=== PATIENT | female | born 1975 | race Caucasian/White ===

== ENCOUNTER 2020-04-18 08:45 | Outpatient (REF) | payer MEDICAID, SELFPAY ==
--- NOTE | ~2020-04-18 | CT_ITS ---
EXAMINATION: CT HEAD WITHOUT CONTRAST CLINICAL INFORMATION: Tinnitus and headache. COMPARISON: CT brain 06/11/2017. TECHNIQUE: Contiguous axial imaging was performed from the skull base to vertex without intravenous administration of contrast. This CT examination was performed using dose optimization techniques as appropriate, variously including the following: *Automated exposure control *Adjustment of mA and/or kV according to patient size (this includes techniques or standardized protocols for targeted exams where dose is matched to indication/reason for exam; i.e. extremities or head) *Use of iterative reconstruction technique DLP: 765 mGy-cm FINDINGS: There is no evidence of acute intracranial hemorrhage or territorial infarction. There is a prominent left subdural thickening left frontal convexity image 144/7. Previously had a small subdural bleed in this region. No abnormal mass effect or midline shift is seen. Pink to white matter differentiation is well preserved. No extra-axial fluid collections are identified. The ventricles are normal in size. There is no abnormal attenuation within the brain parenchyma. There is soft tissue lesion in the left posterior ethmoid sinus, likely a large polyp or retention cyst. Soft tissue debris seen in the left sphenoid sinus. The rest of the paranasal sinuses and mastoid air cells are well-aerated. CT/CT head/brain wo con IMPRESSION: No acute intracranial process seen. Soft tissue density left posterior ethmoid sinus, likely retention cyst.
== END 2020-04-18 08:46 | disposition home or self-care (01) ==
LOC: HO.CT 08:45
PROVIDERS: Visit Provider Registered Nurse
DX: R51.9 Headache, unspecified (principal); H93.13 Tinnitus, bilateral; Z87.828 Personal history of other (healed) physical injury and trauma
CPT/HCPCS: 70450

== ENCOUNTER 2020-05-01 08:05 | Outpatient (REF) | payer MEDICAID, SELFPAY | END 2020-05-01 08:06 | disposition home or self-care (01) | LOC: HO.LAB 08:05 | PROVIDERS: Visit Provider Internal Medicine | DX: Z20.822 Contact with and (suspected) exposure to COVID-19 (principal) | CPT/HCPCS: 36415; C9803; U0003; U0005 ==

== ENCOUNTER 2020-05-10 09:35 | Outpatient (REF) | payer MEDICAID, SELFPAY ==
[2020-05-10 12:14] LABS: SARS COV2 PCR INHOUSE POSITIVE (Negative)
== END 2020-05-10 09:36 | disposition home or self-care (01) ==
LOC: HO.LAB 09:35
PROVIDERS: Visit Provider Internal Medicine
DX: Z20.822 Contact with and (suspected) exposure to COVID-19 (principal)
CPT/HCPCS: C9803; U0003

== ENCOUNTER 2020-06-20 08:40 | Outpatient (REF) | payer MEDICAID, SELFPAY ==
[2020-06-20 09:00] LABS: COVID-19 Test Negative (Negative)
== END 2020-06-20 08:41 | disposition home or self-care (01) ==
LOC: HO.LAB 08:40
PROVIDERS: Visit Provider Internal Medicine
DX: Z20.822 Contact with and (suspected) exposure to COVID-19 (principal)
CPT/HCPCS: 36415; 87635; C9803

== ENCOUNTER 2020-06-27 19:15 | Emergency (ER) | payer MEDICAID, SELFPAY ==
--- NOTE | ~2020-06-27 | XR_ITS ---
EXAMINATION: XR KNEE, LEFT CLINICAL INFORMATION: Left knee and right hand/wrist COMPARISON: None TECHNIQUE: Four views of the left knee. 3 views right hand/wrist FINDINGS: Left knee: There is a maintained tricompartment joint space. No bony erosive changes, fracture or or loose body seen. There is no abnormal joint effusion. Right hand/wrist: There is no visible acute fracture, dislocation or subluxation. The soft tissues are normal. XR/XR hand wrist RT IMPRESSION: Unremarkable left knee exam. Unremarkable right/wrist exam.
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
--- NOTE | ~2020-06-27 | XR_ITS ---
EXAMINATION: XR KNEE, LEFT CLINICAL INFORMATION: Left knee and right hand/wrist COMPARISON: None TECHNIQUE: Four views of the left knee. 3 views right hand/wrist FINDINGS: Left knee: There is a maintained tricompartment joint space. No bony erosive changes, fracture or or loose body seen. There is no abnormal joint effusion. Right hand/wrist: There is no visible acute fracture, dislocation or subluxation. The soft tissues are normal. XR/XR knee LT 4V IMPRESSION: Unremarkable left knee exam. Unremarkable right/wrist exam.
[2020-06-27 19:36] VITALS: BP 144/90; PULSE 75; RESP 16; TEMP 36.5; O2SAT 98; BMI 85.9
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
[2020-06-27] MEDS: NaPROXEN 500 MG TABLET PO (22:45)
== END 2020-06-27 23:00 | disposition home or self-care (01) ==
PROVIDERS: Emergency Provider Emergency Medicine; PCP Registered Nurse
DX: S00.83XA Contusion of other part of head, initial encounter (principal); S60.511A Abrasion of right hand, initial encounter; M25.562 Pain in left knee; M25.531 Pain in right wrist; G44.309 Post-traumatic headache, unspecified, not intractable; V19.40XA Pedal cycle driver injured in collision with unspecified motor vehicles in traffic accident, initial encounter; Y93.9 Activity, unspecified; Y92.410 Unspecified street and highway as the place of occurrence of the external cause; Y99.9 Unspecified external cause status; Z79.899 Other long term (current) drug therapy
CPT/HCPCS: 70450; 73110; 73130; 73564; 99284

== ENCOUNTER 2020-07-04 13:08 | Outpatient (REF) | payer MEDICAID, SELFPAY ==
--- NOTE | ~2020-07-04 | MR_ITS ---
EXAMINATION: MR BRAIN WITHOUT AND WITH CONTRAST CLINICAL INFORMATION: CSF leak with headaches. COMPARISON: CT scan of the head 06/27/2020. TECHNIQUE: Multiplanar, multisequence MRI of the brain was obtained before and after the intravenous administration of 10 mL Gadavist. FINDINGS: No diffusion abnormalities are identified to suggest an acute or subacute infarct. No mass effect or midline shift is seen. The ventricles are normal in size. There are a few foci of increased T2 and FLAIR signal in the periventricular and subcortical white matter which are nonspecific. No extra-axial fluid collections are seen. No large arachnoid granulations are demonstrated. The brainstem and cerebellum are normal. There is minimal smooth pachymeningeal enhancement. On postcontrast imaging, there is no abnormal parenchymal or leptomeningeal enhancement. No pathologic magnetic susceptibility artifact is identified on the gradient refocused acquisition. The study redemonstrates a hematoma in the right supraorbital region. The craniovertebral junction appears normal, and the cerebellar tonsils have normal position and contour. Marrow signal and midline structures are normal. The pituitary region appears normal. The major intracranial flow-voids at the level of the [place] of [place] are preserved. The dural venous sinus flow-voids appear normal. There is trace fluid in the bilateral mastoid tips. There is opacification of the posterior left ethmoid air cells. MR/MR head/brain wo/w con IMPRESSION: 1. There are no acute bleeds or infarcts. There are no masses or areas of abnormal enhancement. 2. There are no findings highly suggestive of intracranial hypotension. There is minimal smooth pachymeningeal enhancement.
[2020-07-04 13:54] LABS: Blood Urea Nitrogen 27 mg/dL (9-16); Estimated Glomerular Filt Rate 23
== END 2020-07-04 13:09 | disposition home or self-care (01) ==
LOC: HO.MRI 13:08
PROVIDERS: Visit Provider Otolaryngology
DX: Z01.812 Encounter for preprocedural laboratory examination (principal); G96.01 Cranial cerebrospinal fluid leak, spontaneous; R51.9 Headache, unspecified
CPT/HCPCS: 36415; 70553; 82565; 84520; A9585

== ENCOUNTER 2020-07-13 13:44 | Outpatient (REF) | payer MEDICAID, SELFPAY ==
[2020-07-13 10:16] LABS: Anion Gap 12 (12-20); Blood Urea Nitrogen 28 mg/dL (9-16); Calcium 9.3 mg/dL (8.4-10.2); Carbon Dioxide 24 mmol/L (22-29); Chloride 109 mmol/L (96-108); Estimated Glomerular Filt Rate 22; Potassium 3.9 mmol/L (3.3-5.1); Sodium 141 mmol/L (135-145)
[2020-07-13 10:26] LABS: Creatinine Urine 80.67 mg/dL; Protein/Creatinine Ratio, Ur 1.59 (<0.2); Total Protein Urine Random 128 mg/dL (<12)
[2020-07-13 10:40] LABS: Vitamin D 25-OH Total 32.9 ng/mL (>30)
[2020-07-16 14:12] LABS: Calcium (PTHI) 9.6 mg/dL (8.6-10.2); PTHI 73 pg/mL (14-64)
== END 2020-07-13 13:45 | disposition home or self-care (01) ==
LOC: HO.LAB 13:44
PROVIDERS: PCP Registered Nurse; Visit Provider Internal Medicine Nephrology
DX: R80.8 Other proteinuria (principal); N02.8 Recurrent and persistent hematuria with other morphologic changes; N18.32 Chronic kidney disease, stage 3b
CPT/HCPCS: 36415; 80051; 82306; 82310; 82565; 83970; 84156; 84520

== ENCOUNTER 2020-07-16 08:37 | Outpatient (REF) | payer MEDICAID, SELFPAY ==
--- NOTE | ~2020-07-16 | MM_ITS ---
EXAMINATION: MM SCREENING DIGITAL BREAST TOMOSYNTHESIS, BILATERAL CLINICAL INFORMATION: Screening. Asymptomatic. The lifetime risk of breast cancer based on the Tyrer-Cuzick Model is 11%. COMPARISON: Mammography: 03/02/2019, 07/08/2011 TECHNIQUE: Digital breast tomosynthesis is performed in both the craniocaudal and mediolateral oblique views along with computer-aided detection (CAD). Synthesized 2D images are generated from the tomosynthesis. Additional left MLO view is provided. FINDINGS: There are scattered areas of fibroglandular density (ACR BI-RADS breast composition Category b). There is asymmetry of the breast, left is slightly larger, similar to prior studies. There is oval parenchymal asymmetry again seen mid outer left breast similar to prior exams. Neither breast shows interval significant mass or architectural abnormality or developing density. No abnormal calcifications. The axilla and skin contours are unremarkable. No significant changes from prior studies. MM/MM tomosynthesis screening BI IMPRESSION: No significant changes from prior exams. ASSESSMENT: BI-RADS 2: Benign RECOMMENDATION: Routine annual mammography screening. This patient's information was entered into a reminder system with a target due date for their next mammogram.
== END 2020-07-16 08:38 | disposition home or self-care (01) ==
LOC: HO.MAMMO 08:37
PROVIDERS: PCP Registered Nurse; Visit Provider Registered Nurse
DX: Z12.31 Encounter for screening mammogram for malignant neoplasm of breast (principal)
CPT/HCPCS: 77063; 77067

== ENCOUNTER → 2020-07-24 11:14 | Outpatient (BNVA) | payer MEDICAID, SELFPAY | PROVIDERS: PCP Registered Nurse; Visit Provider Orthopaedic Surgery | DX: M65.4 Radial styloid tenosynovitis [de Quervain] (principal) | CPT/HCPCS: 20550; 99202; J1100 ==

== ENCOUNTER 2024-09-25 08:44 | Emergency (ER) | payer OTHER, SELFPAY ==
--- NOTE | 2024-09-25 | ECG_ITS ---
Test Reason : cp Blood Pressure : */* mmHG Vent. Rate : 56 BPM Atrial Rate : 56 BPM P-R Int : 144 ms QRS Dur : 100 ms QT Int : 442 ms P-R-T Axes : 38 -31 29 degrees QTcB Int : 426 ms Sinus bradycardia Left axis deviation Minimal voltage criteria for LVH, may be normal variant ( Edmund product ) Abnormal ECG No previous ECGs available Referred By: Generic ED Physician Electronically Signed By: SUAD FIERRO MD
--- NOTE | ~2024-09-25 | XR_ITS ---
CLINICAL HISTORY: nontraumatic pain 4 view right shoulder Comparison: None provided Findings: No acute fracture or dislocation is identified. No significant degenerative changes. Soft tissue structures appear within normal limits. IMPRESSION: No acute osseous abnormality is identified. This document has been electronically signed by: Kai Kumari on 09/25/2024 11:18:30
[2024-09-25 09:17] VITALS: BP 209/109; PULSE 63; RESP 18; TEMP 37; O2SAT 98; BMI 31.3
--- NOTE | 2024-09-25 12:53 | ED.EXTPRO ---
HPI - Extremity Problem General Chief complaint: Extremity Injury, Upper Stated complaint: right shoulder muscle pain Time Seen by Provider: 09/25/24 12:41 Source: patient Mode of arrival: ambulatory Limitations: no limitations History of Present Illness ED Provider: Arabella Jara APRN HPI Narrative: This is a 48-year-old female with history of hypertension and migraines who presents to the ER with complaints of right neck and shoulder pain with radiation down the right arm for 1 week. Patient denies any known injury or trauma. 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 She has been taking Tylenol and using Lidoderm patches with continued pain. She reports pain is worsened with movement. There is no associated numbness, tingling or weakness of the extremity. No reports of headache, vision changes, chest pain, abdominal pain, vomiting. Related Data Previous Rx's ?Medication ?Instructions ?Recorded acetaminophen 500 mg capsule 500 mg PO Q6H PRN pain #14 caps 06/27/20 naproxen 500 mg tablet 500 mg PO BID PRN pain #20 tabs 06/27/20 cyclobenzaprine 10 mg tablet 10 mg PO Q8H PRN muscle spasm #15 09/25/24 tabs naproxen 500 mg tablet 500 mg PO BID PRN pain #20 tabs 09/25/24 prednisone 20 mg tablet 40 mg (2 x 20 mg) PO DAILY #10 tabs 09/25/24 Allergies Allergy/AdvReac Type Severity Reaction Status Date / Time diphenhydramine (From Allergy Hives Verified 09/25/24 09:18 Benadryl) Review of Systems Review of Systems: Yes all other systems are reviewed and are negative Constitutional: Constitutional: Reports no additional constitutional complaints, Denies body ache(s), Denies chills, Denies fever(s), Denies headache(s) and Denies weakness Eyes: Eyes: Reports no additional eye complaints and Denies change in vision ENT: Reports system reviewed and no additional complaints, except as documented, Denies dizziness, Denies headache(s), Denies nasal congestion, Denies nasal discharge and Reports neck pain Cardiovascular: Cardiovascular: Reports no additional cardiovascular complaints, Denies chest pain, Denies leg edema and Denies dyspnea Respiratory: Respiratory: Reports no additional respiratory complaints, Denies cough and Denies dyspnea Gastrointestinal: Gastrointestinal: Reports no additional gastrointestinal complaints, Denies abdominal pain, Denies diarrhea, Denies nausea and Denies vomiting Genitourinary: Genitourinary: Reports no additional female genitourinary complaints and Denies urinary incontinence Musculoskeletal: Musculoskeletal: Reports no additional musculoskeletal complaints, Denies back pain, Reports arthralgias, Denies joint swelling, Reports neck pain, Denies numbness and Denies tingling Integumentary/Breasts: Skin/Breast: Reports system reviewed and no additional complaints, except as docu and Denies rash Neurologic: Reports system reviewed and no additional complaints, except as documented, Denies Abnormal speech present, Denies dizziness, Denies headache(s), Denies numbness, Denies tingling and Denies weakness PMF Past Medical History Attestation statement: The following information was validated with the patient. 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 /rt handed Physical Exam Vital Signs: Vital Signs: Last Vital Signs Temp 98.6 F 09/25/24 09:17 Pulse 63 09/25/24 09:17 Resp 18 09/25/24 09:17 BP 209/109 H 09/25/24 09:17 Pulse Ox 98 09/25/24 09:17 O2 Del Method Room Air 09/25/24 09:17 BMI result Body Mass Index 31.3 Const: General: cooperative, healthy appearing, comfortable and no acute distress Orientation/consciousness: patient oriented x3 Limitations: no limitations HEENT: Head: Yes normal to inspection Ears: hearing grossly normal bilaterally General nose exam: Normal external nose present Face and sinus: Yes normal facial exam Mouth: Normal oral and palatal mucosa present Throat: Yes posterior oropharynx normal Eyes: General: appearance normal, both eyes and all related structures Pupils: Equal, round and reactive pupils present Neck: Other: There is no midline cervical tenderness, step-offs or deformities. There is pain on palpation of the right trapezius, right posterior shoulder and right rhomboid which is worsened with palpation and movement of the right upper extremity. Neck: Yes normal visual inspection and Yes full ROM Chest: Chest palpation & inspection: normal inspection of the chest Resp: Effort & Inspection: normal respiratory effort Auscultation: clear to auscultation bilaterally Cardio: Rate: regular rate Rhythm: regular rhythm Peripheral pulses: Peripheral pulses 2+ throughout GI: Inspection: Yes normal to inspection Palpation (GI): Soft to palpation and nontender Auscultation: normal bowel sounds Back/Spine/Pelvis: Thoracic/Lumbar Spine: thoracic and lumbar spine normal to inspection Skin: General skin exam: no rashes or lesions noted Neuro: General: patient oriented x3, moves all extremities, no focal motor deficits and normal sensation to monofilament Cranial nerves: Yes CN's II-XII intact bilaterally, Yes Equal, round and reactive pupils present, Yes Bilaterally intact EOM present, Yes Nystagmus not present, Yes Normal facial strength present and Yes Midline tongue present Cognition (Neuro): normal cognition Speech: No Abnormal speech present Gait exam (Neuro): Normal gait present Motor exam (neuro): 5/5 motor strength present throughout Sensory Exam: Normal double simultaneous stimulation for sensation Deep tendon reflexes (DTR's): Right triceps reflex intensity grade: 2+, Left triceps reflex intensity grade: 2+, Rt Biceps (C5, C6): 2+, Left biceps reflex intensity grade: 2+, Right brachioradialis reflex intensity grade: 2+ and Left brachioradialis reflex intensity grade: 2+ Extrem: General: Yes normal to inspection Medical Decision Making Medical Decision Making MDM Narrative: This is a 48-year-old female with history of hypertension and migraines who presents to the ER with complaints of right neck and shoulder pain with radiation down the right arm for 1 week. Patient denies any known injury or trauma. 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 She has been taking Tylenol and using Lidoderm patches with continued pain. She reports pain is worsened with movement. There is no associated numbness, tingling or weakness of the extremity. No reports of headache, vision changes, chest pain, abdominal pain, vomiting. There is no midline cervical tenderness, step-offs or deformities. There is pain on palpation of the right trapezius, right posterior shoulder and right rhomboid which is worsened with palpation and movement of the right upper extremity. Normal neuro exam with no focal neurological deficits or red flag symptoms Pain this seems more musculoskeletal on exam. There is palpable muscle spasm on exam. Sounds like cervical radiculopathy Will discharge patient home with NSAID, muscle relaxant and brief course of prednisone. Recommend continued treatment with Tylenol and Lidoderm patches and follow up outpatient with primary care doctor as needed. Patient did have x-ray of her right shoulder here which showed no bony abnormality Differential Diagnosis Differential Diagnoses: The differential diagnosis associated with the presentation includes Cervical radiculopathy Consider shoulder strain/sprain, tendonitis/bursitis, muscle spasm. Low suspicion for fracture, dislocation, carotid dissection d/t no reports of trauma with normal exam Low suspician for malignancy, cord compressure, epidural abscess with no red flag symptoms or neuro deficits. Admission/Observation Consideration of admission/observation: Escalation of care including admission/observation considered Independent Interpretation I performed an independent interpretation of an: Plain X-Ray Interpretation: I independently viewed the x-ray and agree with the radiology report Radiology Impression Discussion of test interpretation with radiology: I have reviewed the radiologist's reading. Radiologist Impression: [address] [address] XRay Report Signed Patient: Crista Chu I MR#: [id number] : 1975 Acct:[id number] Age/Sex: 48 / F ADM Date: 09/25/24 Loc: HO.ED Attending Dr: Ordering Physician: Generic ED Physician Date of Service: 09/25/24 Procedure(s): XR shoulder RT min 2V Accession Number(s): [id number] cc: Generic ED Physician; Physician,Unknown ~ CLINICAL HISTORY: nontraumatic pain 4 view right shoulder Comparison: None provided Findings: No acute fracture or dislocation is identified. No significant degenerative changes. Soft tissue structures appear within normal limits. IMPRESSION: No acute osseous abnormality is identified. This document has been electronically signed by: Kai Kumari on 09/25/2024 11:18:30 Discharge Plan Discharge Clinical Impression: Cervical radiculopathy Patient Disposition: Home, Self-Care Instructions: Cervical Radiculopathy (ED) Additional Instructions: Heat to the area. Gentle stretching. You may continue Tylenol and medicated patches Take the additional prescriptions as ordered. If symptoms continue for more than 7 days please follow-up with your primary care doctor as you may need to have additional testing done Return for weakness, vision changes, chest pain, vomiting or worsening pain. Your blood pressure was elevated on today's visit. Please continue to take her medications and recheck your blood pressure at home. Follow-up with your primary care doctor for any continued elevated high blood pressure Prescriptions: New naproxen 500 mg tablet 500 mg PO BID PRN (Reason: pain) Qty: 20 0RF cyclobenzaprine 10 mg tablet 10 mg PO Q8H PRN (Reason: muscle spasm) Qty: 15 0RF prednisone 20 mg tablet 40 mg PO DAILY Qty: 10 0RF No Action naproxen 500 mg tablet 500 mg PO BID PRN (Reason: pain) Qty: 20 0RF acetaminophen 500 mg capsule 500 mg PO Q6H PRN (Reason: pain) Qty: 14 0RF Referrals: Physician,Unknown J [Primary Care Provider, Medical] Stand Alone Forms: Work/School Release Print Language: Italian
[2024-09-25 13:22] VITALS: BP 209/109; PULSE 63; RESP 18; TEMP 37; O2SAT 98
[2024-09-25 13:31] VITALS: BP 209/109; PULSE 63; RESP 18; TEMP 37; O2SAT 98
== END 2024-09-25 13:31 | disposition home or self-care (01) ==
PROVIDERS: Emergency Provider Emergency Medicine; PCP Nurse Practitioner Family
DX: M54.12 Radiculopathy, cervical region (principal); R07.9 Chest pain, unspecified; M25.511 Pain in right shoulder; M54.2 Cervicalgia
CPT/HCPCS: 73030; 93005; 99283; 99284

== ENCOUNTER → 2024-09-25 09:20 | Outpatient (BNV) | payer MEDICAID, SELFPAY | PROVIDERS: Visit Provider Radiology Vascular & Interventional Radiology | DX: M25.511 Pain in right shoulder (principal) | CPT/HCPCS: 73030 ==

== ENCOUNTER → 2024-09-25 09:28 | Outpatient (BNV) | payer OTHER, SELFPAY | PROVIDERS: Emergency Provider Emergency Medicine; PCP Nurse Practitioner Family; Visit Provider Internal Medicine Cardiovascular Disease | DX: R00.1 Bradycardia, unspecified (principal) | CPT/HCPCS: 93010 ==

== ENCOUNTER 2024-10-27 08:39 | Outpatient (REF) | payer OTHER, SELFPAY ==
--- OUTSIDE RECORDS SUMMARY | 2024-10-26 08:00 | XMS_ITS | Encounter Summary ---
Author Organization [facility], Address [address] [place] [address] Phone Care Team Providers Care Leading Firefighter Name Role Phone Elroy Zakiya Primary Care Provider [phone] Encounter Details Date Type Department Care Team (Late st Contact Info) Description 10/26/2024 8:00 AM EDT Office Visit [facility] - [facility] Access Center [address] [place] [phone] Esvin De La Rosa MD [address] [place] [address] [place] [phone] Chronic kidney disease, stage 4 (severe) (HCC) (Primary Dx) Social History Tobacco Use Types Packs/Day Years Used Date Smoking Tobacco: Never Alcohol Use Standard Drinks/Week Comments No 0 (1 standard drink = 0.6 oz pur e alcohol) Comments Unknown Sex and Gender Information Value Date Recorded Sex Assigned at Not on file Legal Sex Female 4:30 PM EST Gender Identity Not on file Sexual Orientation Not on file documented as of this encounter Progress Notes * Esvin De La Rosa MD - 10/26/2024 8:00 AM EDT Images from the original note were not included. History and Physical 10/26/24 Chief Complaint: Renal failure. Pertinent History: This patient has chronic kidney disease which has progressed to stage 4 and has been referred for hemodialysis access evaluation. This patient has not yet started dialysis.. The cause of renal failure is IgA nephropathyu. This patient is right hand dominant. Previous CVC/PICC lines: No Pacemaker or AICD: No Myocardial infarction the last 6 months: No Stroke in the last 6 months: No History of open heart surgery: No Chest pain/angina: No Shortness of breath: No In addition to reviewing the medical, surgical, social and family histories from the [facility] ([facility]) common record, I have also reviewed the [facility] Health History Questionnaire (Includes: Personal Health History, Medications, Allergies and Social History/Habits) which was completed today and will be scanned into this patient's electronic medical record. Further, I reviewed the records in Care Everywhere. Physical Exam: There were no vitals filed for this visit. Vitals reviewed. Constitutional: She does not appear ill. No distress. HEENT: Nose: Nose normal. Mouth/Throat: Oropharynx is clear and moist. Cardiovascular: Normal rate and regular rhythm. Pulmonary/Chest: Effort normal. Psychiatric: She has a normal mood and affect. Her behavior is normal. Judgment normal. Impression: This patient has renal failure and needs an access created for hemodialysis. I reviewed the nephrology notes in the chart and the recent pertinent laboratory values. I discussed multiple surgical options (fistula, graft, catheter) for dialysis access and gave educational materials regarding dialysis access to the patient. This patient does have co-morbidities as listed in the active problem list which increase the risk of significant complications, morbidity, and mortality related to the proposed surgical procedure for dialysis access. I discussed the risks inherent to this surgical procedurewith this patient. The risks discussed included, but were not limited to: anesthesia, bleeding, injury, infection, malfunction of the dialysis access, failure of the dialysis access, need for future operations, decreased blood flow to the distal extremity with resultant pain, paralysis, numbness, loss of function and/or amputation. Patient Active Problem List Diagnosis Stage 3b chronic kidney disease (HCC) Essential hypertension Proteinuria IgA nephropathy Stage 5 chronic kidney disease (HCC) Chronic kidney disease, stage 4 (severe) ([facility]) . Preoperative vessel mapping for hemodialysis access was performed. Please see separate note. Left: Ceph 2mm forearm, 3.5 mm upper, no connection to deep system, basilic is small, high bifurc BA at mid-upper arm Right: Ceph 2.5-3mm forearm, 7mm elbow, 5mm upper, 4mm advanced manufacturing associate to the ulnar vein, high bifurc BAnear axilla. Plan: Schedule for creation of a right arm arterio-venous fistula. Will plan for right ulnar-ulnar endo- fistula, may need venous acces in the upper arm. She may decide to do PD in the future. Dario test is positive with good radial/ulnar circulation tothe hand. This patient does not need any medical clearances prior to surgery. documented in this encounter Plan of Treatment Not on file documented as of this encounter Visit Diagnoses Diagnosis Chronic kidney disease, stage 4 (severe) (HCC)- Primary documented in this encounter Care Teams Leading Firefighter Relationship Specialty Start Date End Date [facility] [address] [place] [address] PCP - General 05/31/21 documented as of this encounter
--- OUTSIDE RECORDS SUMMARY | 2024-10-26 14:45 | XMS_ITS | Encounter Summary ---
Author Organization [employer] Address [address] [place] [address] [address] [place] [address] Care Team Providers Care Training Representative Name Role Phone Kaitlin Chilel Primary Care Provider [phone] Reason for Referral * Imaging (Routine) - Authorized Specialty Diagnoses / Procedures Referred By Felipa godoy Referred To Contact Radiology Diagnoses Well adult exam Procedures BI Mammogram Screening Tomosynthesis Bilateral Kaitlin Chilel FNP [address] [place] [address] Phone: tel: fax: [address] Phone: tel: fax: Referral ID Status Reason Start Date Expiration Date V isits Requested Visits Authorized [id number] Authorized 10/26/2024 10/26/2025 1 1 * Consultation (Routine) - Pending Review Specialty Diagnoses / Procedures Referred By Felipa godoy Referred To Contact Gastroenterology Diagnoses Well adult exam Kaitlin Chilel FNP [address] [place] [address] Phone: tel: fax: Referral ID Status Reason Start Date Expiration Date Visits Requested Visits Authorized [id number] Pending Review Specialty Services Required 10/26/2024 10/26/2025 1 1 Encounter Details Date Type Department Care Team (Late st Contact Info) Description 10/26/2024 2:45 PM EDT Office Visit [facility] [address] [place] [address] Kaitlin Chilel FNP [address] [place] [address] Well adult exam (Primary Dx); Encounter for immunization; Uncontrolled hypertension; CKD stage 4 secondary to hypertension (CMS/HCC); Anemia due to stage 4 chronic kidney disease (CMS/HCC); Heart murmur Social History Tobacco Use Types Packs/Day Years Used Date Smoking Tobacco: Never Passive Smoke Exposure: Never Smokeless Tobacco: Never Alcohol Use Standard Drinks/Week Comments Never 0 (1 standard drink = 0.6 oz pur e alcohol) Depression Answer Date Recorded Patient Health Questionnaire-9 Score 0 10/26/2024 Patient Health Questionnaire-9 Score 0 10/26/2024 Last PHQ-9: Questionnaire Data Not on file 0 10/26/2024 Housing Stability Answer Date Recorded What is your housing situation today? I have lensujata linares 10/19/[address] you li ve. Do you have problems with any of the following? None of the above 10/19/2024 Food Insecurity Answer Date Recorded Within the past 12 months, y ou worried that your food would run out before you got money to buy more: Never True 10/19/2024 Within the past 12 months,th e food you bought just didn't last and you didn't have enough money to get more: Never True 11/2024 Transportation Answer Date Recorded In the past 12 months, has l ack of transportation kept you from medical appts, meetings, work or from getting things needed for daily living? No 10/19/2024 Utilities Answer Date Recorded In the past 12 months, has t he electric, gas, oil or water company threatened to shut off services in your home? No 10/19/2024 Depression Answer Date Recorded Patient Health Questionnaire-2 Score 0 10/26/2024 Internet Access Answer Date Recorded Internet Access Q1 Yes 10/19/2024 Internet Access Q2 Not on file 10/19/2024 Comments Unknown Intention Date Recorded No desire to become (finding) 0 10/26/2024 Sex and Gender Information Value Date Recorded Sex Assigned at Female 12/09/2021 10:16 AM EDT Legal Sex Female 10:16 AM EDT Gender Identity Female 12/09/2021 10:16 AM EDT Sexual Orientation Straight 12/09/2021 10 :16 AM EDT documented as of this encounter Last Filed Vital Signs Vital Sign Reading Time Taken Comments Blood Pressure 176/94 10/26/2024 2:56 PM EDT Pulse 72 10/26/2024 2:56 PM EDT Temperature 36.8 C (98.2 F) 10/26/2024 2:56 PM EDT Respiratory Rate 18 10/26/2024 2:56 PM EDT Oxygen Saturation 98% 10/26/2024 2:56 PM EDT Inhaled Oxygen Concentration - - Weight 92.6 kg (204 lb 4 oz) 10/26/2024 2:56 PM EDT Height 158.6 cm (5' 2.45 ) 10/26/2024 2:56 PM ED T Body Mass Index 36.82 10/26/2024 2:56 PM EDT documented in this encounter Functional Status * Over the past 2 weeks, how often have you been bothered by any of the following problems? Question Answer Date of Assessment Author Patient Health Questionnaire -2 Score 0 10/26/2024 3:50 PM EDT Sofi Kim MA * Little interest or pleasure in doing things Answer Date of Assessment Author Not at all 10/26/2024 3:50 PM EDT Sofi Garza MA * Feeling down, depressed, or hopeless Answer Date of Assessment Author Not at all 10/26/2024 3:50 PM EDT Sofi Garza MA * Trouble falling or staying asleep, or sleeping too much Answer Date of Assessment Author Not at all 10/26/2024 3:50 PM EDT Sofi Garza MA * Feeling tired or having little energy Answer Date of Assessment Author Not at all 10/26/2024 3:50 PM EDT Sofi Garza MA * Poor appetite or overeating Answer Date of Assessment Author Not at all 10/26/2024 3:50 PM EDT Sofi Garza MA * Feeling bad about yourself - or that you are a failure or have let yourself or your family down Answer Date of Assessment Author Not at all 10/26/2024 3:50 PM EDT Sofi Garza MA * Trouble concentrating on things, such as reading the newspaper or watching television Answer Date of Assessment Author Not at all 10/26/2024 3:50 PM EDT Sofi Garza MA * Moving or speaking so slowly that other people could have noticed? Or the opposite - being so fidgety or restless that you have been moving around a lot more than usual. Answer Date of Assessment Author Not at all 10/26/2024 3:50 PM EDT Sofi Garza MA * Thoughts that you would be better off or hurting yourself in some way Answer Date of Assessment Author Not at all 10/26/2024 3:50 PM EDT Sofi Garza MA * Patient Health Questionnaire-9 Score Answer Date of Assessment Author 0 10/26/2024 3:50 PM EDT Sofi Garza MA * Over the last 2 weeks, how often have you been bothered by any of the following problems? Question Answer Date of Assessment Author Feeling nervous, anxious, or on edge 0 10/26/2024 3:50 PM EDT Sofi Kim MA Not being able to stop or control worrying 0 10/26/2024 3:50 PM EDT Sofi Kim MA Worrying too much about different things 0 10/26/2024 3:50 PM EDT Sofi Kim MA Trouble relaxing 0 10/26/2024 3:50 PM EDT Sofi Márquez MA Being so restless that it is hard to sit still 0 10/26/2024 3:50 PM EDT Sofi Kim MA Becoming easily annoyed or irritable 0 10/26/2024 3:50 PM EDT Sofi iKm MA Feeling afraid as if somethi ng awful might happen 0 10/26/2024 3:50 PM EDT Sofi Kim MA PATRICIA-7 Total Score 0 10/26/2024 3:50 PM EDT Sofi Kim MA documented as of this encounter Progress Notes * Kaitlin Chilel, CLEARANCE REP - 10/26/2024 2:45 PM EDT Subjective: Crista Chu is a 49 y.o. female who presents to the office for a transfer patient visit. Interim history: CKD stage 4 - History of chronic kidney disease - Followed by oceanography teacher (Dr. Cedeño) - No diabetes - Hypertension identified as underlying cause - Reports normal urination - Occasional edema, varies Hypertension - Longstanding hypertension - Mother also has hypertension - Previously on labetalol 100 mg, increased to 200 mg three times daily due to persistent high blood pressure - Denies headaches, blurry vision, weakness Iron Deficiency/Anemia - Prescribed iron tablets but not taking them due to allergy and adverse effects - Informed oceanography teacher about iron intolerance - Awaiting appointment for intravenous iron therapy Current concerns: None Problem List[1] Surgical History[2] Family History[3] Social History Living situation: Home with children Safety:No fire arms in the home. 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 Reports home and environment safe Employment/Education: Employed Diet/exercise: Eats variety of food including fruits and vegetables. Routine exercise Substance use: Denies Sexual activity: None Dental: [facility] dental Vision:[place] Last menstrual period: early menopause Children: Four children Mammogram: Over two years. Will refer Colonoscopy: Referral Mental health: Denies SI, harm self or others Allergies[4] Current Medications[5] Health Maintenance Topic Date Due Colorectal Cancer Screening Never done Hepatitis B Vaccines (2 of 3 - 19+ 3-dose series) 04/13/2019 Mammogram 07/16/2022 Zoster Vaccines (1 of 2) Never done Cervical Cancer Screening 03/16/2024 COVID-19 Vaccine (5 - 2024- season) 2024 Influenza Vaccine (1) 10/10/2024 Depression Screening 10/26/2025 Tobacco Screening 10/26/2025 SDOH Screening 10/26/2025 Alcohol/Substance Use Screening 10/26/2025 Family Planning (PISQ) 10/26/2025 Disability Screening 10/26/2025 Lipid Panel 05/15/2026 DTaP/Tdap/Td Vaccines (2 - Td or Tdap) 10/26/2034 RSV Patients and Patients Aged 60 years or older (1 - 1-dose 75+ series) 2048 Pneumococcal Vaccine: 50+ Years Completed HIV Screening Completed Hepatitis C Screening Completed RSV under 20 months Aged Out HIB Vaccines Aged Out IPV Vaccines Aged Out Hepatitis A Vaccines Aged Out Meningococcal Vaccine Aged Out Rotavirus Vaccines Aged Out HPV Vaccines Aged Out Meningococcal B Vaccine Aged Out Review of Systems Constitutional: Negative for activity change, appetite change, fatigue and fever. HENT: Negative for congestion, ear discharge, ear pain, rhinorrhea and sore throat. Eyes: Negative for discharge, redness and itching. Respiratory: Negative for cough, shortness of breath and wheezing. Cardiovascular: Negative for chest pain. Gastrointestinal: Negative for abdominal pain, blood in stool, constipation, diarrhea, nausea and vomiting. Endocrine: Negative for polydipsia and polyuria. Genitourinary: Negative for decreased urine volume, difficulty urinating, dyspareunia, hematuria and menstrual problem. Musculoskeletal: Negative for arthralgias, gait problem and joint swelling. Skin: Negative for rash. Allergic/Immunologic: Negative for environmental allergies and food allergies. Neurological: Negative for dizziness, weakness and headaches. Hematological: Does not bruise/bleed easily. Psychiatric/Behavioral: Negative for behavioral problems, sleep disturbance and suicidal ideas. Vitals: 10/26/24 1456 BP: (!) 176/94 BP Location: Left arm Patient Position: Sitting BP Cuff Size: Large adult Pulse: 72 Resp: 18 Temp: 98.2 ??F (36.8 ??C) TempSrc: Oral SpO2: 98% Weight: 204 lb 4 oz (92.6 kg) Height: 5' 2.45 (1.586 m) Physical Exam Constitutional: Appearance: Normal appearance. HENT: Head: Normocephalic and atraumatic. Right Ear: Tympanic membrane, ear canal and external ear normal. Left Ear: Tympanic membrane, ear canal and external ear normal. Nose: Nose normal. No congestion. Mouth/Throat: Mouth: Mucous membranes are moist. Pharynx: Oropharynx is clear. Eyes: Extraocular Movements: Extraocular movements intact. Pupils: Pupils are equal, round, and reactive to light. Cardiovascular: Rate and Rhythm: Normal rate and regular rhythm. Pulses: Normal pulses. Heart sounds: Normal heart sounds. No murmur heard. Comments: Murmur Pulmonary: Effort: Pulmonary effort is normal. Breath sounds: Normal breath sounds. No wheezing. Chest: Chest wall: No tenderness. Abdominal: General: Abdomen is flat. Bowel sounds are normal. Palpations: Abdomen is soft. Tenderness: There is no guarding or rebound. Musculoskeletal: General: Normal range of motion. Cervical back: Normal range of motion. Right lower leg: No edema. Left lower leg: No edema. Skin: General: Skin is warm and dry. Capillary Refill: Capillary refill takes less than 2 seconds. Findings: No bruising. Neurological: General: No focal deficit present. Mental Status: She is alert and oriented to person, place, and time. Cranial Nerves: No cranial nerve deficit. Sensory: No sensory deficit. Psychiatric: Mood and Affect: Mood normal. Behavior: Behavior normal. Thought Content: Thought content normal. Judgment: Judgment normal. Visit Diagnoses Well adult exam - Primary Well nourished, alert and cooperative , good historian, and answering questions appropriately Plan Order blood work Referred to colonoscopy and mammogram Diet and exercise review Lifestyle and behavioral health assessment Patient education on vaccination and importance getting annual vaccines Due for shingles, Tdap and Pneumococcal. Tdap and pneumococcal vaccine offered and administered. Patient advised to get her shingles vaccine from the pharmacy Relevant Orders HIV-1/2 Antigen and Antibodies, Fourth Generation, with Reflexes Chlamydia/N. Gonorrhoeae, PCR, Urine TSH Referral to Gastroenterology BI Mammogram Screening Tomosynthesis Bilateral Encounter for immunization Relevant Orders TDAP VACCINE 7 yrs + (Completed) PCV-20 VACCINE 6 wks + (Completed) Uncontrolled hypertension Hx of uncontrolled HTN. Followed by oceanography teacher Pertinent negatives include no blurred vision, chest pain, headaches, malaise/fatigue, neck pain, orthopnea, palpitations, peripheral edema, PND, shortness of breath or sweats. There are no compliance problems. Positive for CKD 4 and heart murmur Take your meds as prescribed. Do not change or discontinue current prescriptions without consultinghealth care provider Aerobic exercise daily at 30 mins daily to reduce BP and increase as tolerated. Eat heart healthy diet such as DASH. Low-sodium diet less than 2g/day to reduce BP and prevent ASCVD. Seek immediate medical attention for chest pain, palpitations, SOB, syncope, or sudden changes in mental status. CKD stage 4 secondary to hypertension (CMS/HCC) Relevant Medications ergocalciferol (Vitamin D-2) 1.25 MG (49418 UT) capsule labetalol (Normodyne) 100 MG tablet calcitriol (Rocaltrol) 0.5 MCG capsule Anemia due to stage 4 chronic kidney disease (CMS/HCC) Prescribed iron tablets but not taking them due to allergy and adverse effects Informed oceanography teacher about iron intolerance. Awaiting appointment for intravenous iron therap Heart murmur This note was drafted using Ambient (AI) technology. The patient/patient's guardian has been informed and has consented to the use of this technology: Yes [facility] CUSTOMER ACQUISITION SPECIALIST Attestation CUSTOMER ACQUISITION SPECIALIST Resident Attestation: I, Myla JACKSON , have reviewed the resident's note and agree with the assessment & plan of care as documented above. [1] Patient Active Problem List Diagnosis Essential hypertension Headache Migraine Chronic kidney disease, stage 4 (severe) (CMS/HCC) [2] No past surgical history on file. [3] Family History Problem Relation Name Age of Onset Hypertension Mother Asthma Daughter [4] Allergies Allergen Reactions Ferumoxytol Unknown Other reaction(s): Unknown Other reaction(s): Unknown [5] Current Outpatient Medications Medication Sig Dispense Refill acetaZOLAMIDE (Diamox) 250 MG tablet Take 250 mg by mouth 2 times daily. calcitriol (Rocaltrol) 0.5 MCG capsule Take 0.5 mcg by mouth. take 1 capsule (0.5 mcg total) by mouth 3 times weekly on Thursday ergocalciferol (Vitamin D-2) 1.25 MG (48073 UT) capsule Take 50,000 Units by mouth 1 (one) time perweek. Jardiance 10 MG Take 10 mg by mouth with breakfast. labetalol (Normodyne) 100 MG tablet Take 200 mg by mouth 3 times daily. No current facility-administered medications for this visit. documented in this encounter Plan of Treatment Scheduled Orders Name Type Priority Associated Diagnoses Orde r Schedule HIV-1/2 Antigen and Antibodies, Fourth Generation, with Reflexes Lab Routine Well adult exam Expected: 10/26/2024 (Approximate), Expires: 10/26/2025 Chlamydia/N. Gonorrhoeae, PCR, Urine Lab Routine Well adult exam Ordered: 10/26/2024 TSH Lab Routine Well adult exam Expected: 10/26/2024 (Approximate), Expires: 10/26/2025 BI Mammogram Screening Tomosynthesis Bilateral Imaging Routine Well adult exam Expected: 10/26/2024, Expires: 12/26/2025 Scheduled Referrals Name Type Priority Associated Diagnoses Order Schedule Referral to Gastroenterology Outpatient Referral Routine Well adult exam Expected: 10/26/2024 (Approximate), Expires: 10/26/2025 documented as of this encounter Visit Diagnoses Diagnosis Well adult exam- Primary Routine general medical examination at a health care facility Encounter for immunization Uncontrolled hypertension CKD stage 4 secondary to hypertension ([facility]) Anemia due to stage 4 chronic kidney disease ([facility]) Heart murmur Undiagnosed cardiac murmurs documented in this encounter Additional Health Concerns Assessment Noted Time PHQ-9 Depression Total Score: 0 10/27/19 3:50 PM EDT documented as of this encounter Care Teams Training Representative Relationship Specialty Start Date End Date Kaitlin Chilel FNP [address] [place] [id number] PCP - General Family Medicine 10/26/24 documented as of this encounter
--- OUTSIDE RECORDS SUMMARY | 2024-10-27 09:53 | XMS_ITS | Encounter Summary ---
Author Organization [facility], Address [address] [place] [address] Phone Care Team Providers Care Floor Hand Name Role Phone [facility] Primary Care Provider [phone] Reason for Visit * Reason Comments Med Refill Encounter Details Date Type Department Care Team (Late st Contact Info) Description 06/16/2022 Refill [facility] [address] [facility] [address] [place] [address] Rush Cedeño MD [address] [place] [address] Social History Tobacco Use Types Packs/Day Years [...] on file documented as of this encounter Plan of Treatment Not on file documented as of this encounter Visit Diagnoses Not on filedocumented in this encounter Care Teams Floor Hand Relationship Specialty Start Date End Date Shreve Eucha [address] [place] [address] PCP - General 05/31/21 documented as of this encounter
--- OUTSIDE RECORDS SUMMARY | 2024-10-27 09:53 | XMS_ITS | Encounter Summary ---
Author Organization [facility], Address [address] [place] [address] Phone Care Team Providers Care Agronomy Teacher Name Role Phone [place] [facility] Primary Care Provider [phone] Reason for Visit * Reason Comments Med Refill Encounter Details Date Type Department Care Team (Late st Contact Info) Description 04/02/2021 [facility]ill [facility] [place] [address] [place] [phone] Rush Cedeño MD [address] [place] [phone] Social History Tobacco Use Types Packs/Day Years [...] on filedocumented in this encounter Care Teams Agronomy Teacher Relationship Specialty Start Date End Date Elroy Zakiya [address] [place] [address] PCP - General 05/31/21 documented as of this encounter
--- OUTSIDE RECORDS SUMMARY | 2024-10-27 09:53 | XMS_ITS | Encounter Summary ---
Author Organization [facility], Address [address] [place] [address] Phone Care Team Providers Care Erp Technical Lead Name Role Phone [facility] [place] Primary Care Provider [phone] Encounter Details Date Type Department Care Team (Late st Contact Info) Description 09/27/2024 Office Communication [facility], - [place] [address] [place] [phone] Rush Cedeño MD [address] [place] [address] [address] [place] [phone] Social History Tobacco Use Types Packs/Day Years [...] on filedocumented in this encounter Care Teams Erp Technical Lead Relationship Specialty Start Date End Date Zakiya Abbasi [address] [place] [address] PCP - General 05/31/21 documented as of this encounter
--- OUTSIDE RECORDS SUMMARY | 2024-10-27 09:53 | XMS_ITS | Clinical Summary ---
Author Organization [employer] Address [address] [place] [address] [address] [place] [address] Care Team Providers Care Collar Fuser Name Role Phone Kaitlin Chilel TELEMARKETING AGENT Primary Care Provider [phone] Allergies Active Allergy Reactions Criticality Noted Date Comments Ferumoxytol Unknown Medium 12/16/2017 Other reaction(s): Unknown Other reaction(s): Unknown Medications Jardiance 10 MG Take 10 mg by mouth with breakfast. 5 10/12/19 26 Active ergocalciferol (Vitamin D-2) 1.25 MG (40971 UT) capsule Take 50,000 Units by mouth 1 (one) time per week. 5 12/27/19 25 Active labetalol (Normodyne) 100 MG tablet Take 200 mg by mouth 3 times daily. 5 Active acetaZOLAMIDE (Diamox) 250 MG tablet Take 250 mg by mouth 2 times daily. 5 Active calcitriol (Rocaltrol) 0.5 MCG capsule Take 0.5 mcg by mouth. take 1 capsule (0.5 mcg total) by mouth 3 times weekly on Thursday 5 Active acetaminophen (Tylenol) 500 MG tablet Take 500 mg by mouth every 6 (six) hours if needed. 1 10/27/19 25 Discontinu ed(Other) chlorthalidone (Hygroton) 25 MG tablet Take 0.5 tablets by mouth Once per day. 2 10/27/19 25 Discontinu ed(Other) naproxen (Naprosyn) 500 MG tablet Take 1 tablet by mouth if needed in the morning and at bedtime for pain. 5 10/27/19 25 Discontinu ed(Other) Active Problems Problem Noted Date Diagnosed Date Headache 10/25/2024 Essential hypertension 03/18/2019 Chronic kidney disease, stage 4 (severe) 020 Overview (10/25/2024): Update for Diagnosis Load Migraine 06/30/2011 Encounters Date Type Department Care Team Description 10/26/2024 2:45 PM EDT Office Visit [address] [address] Kaitlin Chilel FNP Well adult exam (Primary Dx); Encounter for immunization; Uncontrolled hypertension; CKD stage 4 secondary to hypertension (CMS/HCC); Anemia due to stage 4 chronic kidney disease ([facility]/HCC); Heart murmur 10/26/2024 Travel 10/25/2024 Telephone [facility] [address] [place] [id number] Malorie Samaniego MA CHART PREP 10/19/2024 Travel 10/19/2024 Patient Outreach [address] [address] Kaitlin Chilel FNP Pre-visit Planning (SDOH screening negative and tobacco screening negative) from Last 3 Months Immunizations Immunization Administration Dates Next Due Pneumococcal Conjugate PCV 20 10/26/2024 Tdap 10/26/2024 Family History Medical History Relation Name Comments Asthma Daughter Hypertension Mother Relation Name Status Comments Daughter Mother Social History Tobacco Use Types Packs/Day Years Used Date Smoking Tobacco: Never Passive Smoke Exposure: Never Smokeless Tobacco: Never Tobacco Cessation:Counseling Given: Not Answered Alcohol Use Standard Drinks/Week Comments Never 0 (1 standard drink = 0.6 oz pur e alcohol) Depression Answer Date Recorded Patient Health Questionnaire-9 Score 0 10/26/2024 Patient Health Questionnaire-9 Score 0 10/26/2024 Last PHQ-9: Questionnaire Data Not on file 0 10/26/2024 Housing Stability Answer Date Recorded What is your housing situation today? I have len linares 10/19/[address] you [...] Orientation Straight 12/09/2021 10 :16 AM EDT Last Filed Vital Signs Vital Sign Reading [...] Mass Index 36.82 10/26/2024 2:56 PM EDT Plan of Treatment Health Maintenance Due Date Last Done Comments CT Colonography 1973 Colonoscopy 1973 Colorectal Cancer Screening 1973 Dental Oral Exam 1973 Dental Prophylaxis 1973 Dental X-Ray: Bitewings 1973 Dental X-Ray: Full Mouth 1973 FIT DNA/Cologuard 1973 FIT 1973 FOBT 1973 Sigmoidoscopy 1973 Pap Smear 1994 Hepatitis B Vaccines (2 of 3 - 19+ 3-dose series) 04/13/2019 03/16/2019 Mammogram 07/16/2022 07/16/2020, 03/04/2019 Zoster Vaccines (1 of 2) 10/14/2023 Cervical Cancer Screening 03/16/2024 HPV/Cotest 03/16/2024 03/16/2019 COVID-19 Vaccine ( season) 2024 10/30/2022, 02/15/2021, 06/27/2020, Additional history exists Influenza Vaccine (#1) 2024 , 12/22/2018, 03/07/2015 Alcohol/Substance Use Screening 10/26/2025 10/26/2024 Depression Screening 10/26/2025 10/26/2024, 10/27/19 25 Disability Screening 10/26/2025 10/26/2024 Family Planning (PISQ) 10/26/2025 10/26/2024 SDOH Screening 10/26/2025 10/26/2024 Tobacco Screening 10/26/2025 10/26/2024 Lipid Panel 05/15/2026 05/15/2021 DTaP/Tdap/Td Vaccines (2 - Td or Tdap) 10/26/2034 10/26/2024, 11/14/2005 RSV Patients and Patients Aged 60 years or older (1 - 1-dose 75+ series) 2048 Hepatitis C Screening Completed 01/12/2019 HIV Screening Completed 05/15/2021, 01/12/2019 Pneumococcal Vaccine: 50+ Years Completed 10/26/2024, 11/14/2005 HIB Vaccines Aged Out No longer eligi ble based on patient's age to complete this topic HPV Vaccines Aged Out No longer eligi ble based on patient's age to complete this topic Hepatitis A Vaccines Aged Out No long er eligible based on patient's age to complete this topic IPV Vaccines Aged Out No longer eligi ble based on patient's age to complete this topic Meningococcal B Vaccine Aged Out No l onger eligible based on patient's age to complete this topic Meningococcal Vaccine Aged Out No allan josee eligible based on patient's age to complete this topic RSV under 20 months Aged Out No longe r eligible based on patient's age to complete this topic Rotavirus Vaccines Aged Out No longer eligible based on patient's age to complete this topic Procedures Procedure Name Priority Date/Time Associated Diagnosis Comments HIV 1/2 ANTIGEN/ANTIBODY, FOURTH GENERATION W/RFL Routine 05/15/2021 10:02 AM EDT LIPID PANEL, STANDARD Routine 05/15/2021 10:02 AM EDT MAMMOGRAM GENERIC Routine 07/16/2020 9:0 0 AM EDT ZZZ HISTORICAL HPV MRNA E6/E7 Routine 03/16/2019 9:45 AM EST ZZZ HISTORICAL HEPATITIS C ANTIBODY RFLX Routine 01/12/2019 10:04 AM EST from Last 3 Months or Most Recently Relevant to Health Maintenance Results * HIV 1/2 ANTIGEN/ANTIBODY,FOURTH GENERATION W/RFL (05/15/2021 10:02 AM EDT) HIV-1/2 ANTIGEN AND ANTIBODIES, 4TH GENERATION W/ REFLEX NON-REACT AUREA NON-REACT AUREA [facility] Comment: HIV-1 antigen and HIV-1/HIV-2 antibodies were not detected. There is no laboratory evidence of HIV infection. PLEASE NOTE: This information has been disclosed to you from records whose confidentiality may be protected by state law. If your state requires such protection, then the state law prohibits you from making any further disclosure of the information without the specific written consent of the person to whom it pertains, or as otherwise permitted by law. A general authorization for the release of medical or other information is NOT sufficient for this purpose. For additional information please refer to http://Globa.li.Livestream.LendAmend/faq/YOP550 (This link is being provided for informational/ educational purposes only.) The performance of this assay has not been clinically validated in patients less than 2 years old. 05/15/2021 10:0 2 AM EDT [facility] LAB BLOOD ORDERABLES Final Re sult Performing Organization Address [facility] de Phone Number [facility] [address] [place] [address], * (ABNORMAL) LIPID PANEL, STANDARD (05/15/2021 10:02 AM EDT) Chol/HDLC Ratio 4.0 <5.0 (calc) [facility] Cholesterol, Total 189 <200 mg/dL [facility] HDL Cholesterol 47(L) > OR = 50 mg/dL [facility] LDL Cholesterol 118(H) mg/dL (calc) [facility] Comment: Reference range: <100 Desirable range <100 mg/dL for primary prevention; <70 mg/dL for patients with CHD or diabetic patients with > or = 2 CHD risk factors. LDL-C is now calculated using the Tevin-Dakota calculation, which is a validated novel method providing better accuracy than the Friedewald equation in the estimation of LDL-C. Tevin SS et al. GUERLINE. 2013;310(19): 6352-9572 (http://education.[employer].LendAmend/faq/KJF103) Non-HDL Cholesterol 142(H) <130 mg/dL (calc) [facility] Comment: For patients with diabetes plus 1 major ASCVD risk factor, treating to a non-HDL-C goal of <100 mg/dL (LDL-C of <70 mg/dL) is considered a therapeutic option. Triglycerides 125 <150 mg/dL [facility] 05/15/2021 10:0 2 AM EDT [facility] LAB BLOOD ORDERABLES Final Re sult Performing Organization Address [facility] Co de Phone Number [facility] [address] [place] [address], * Mammography Report 1 (07/16/2020 9:00 AM EDT) Anatomical Region Laterality Modality Breast Bilateral Mammography 07/16/2020 9:00 AM EDT Narrative 07/17/2020 8:30 AM EDT Refer to the Notes tab for result details [facility] Procedure: Mammography Report 1 Procedure Note ProviderZayda MD - 05/04/2022 Refer to the Notes tab for result details [facility] Procedure: Mammography Report 1 Historical Provider IMG BI PROCEDURES Final R esult * HPV mRNA E6/E7 (03/16/2019 9:45 AM EST) HPV mRNA E6/E7 Not Detected NOT DETECTED [facility] Comment: This test was performed using the APTIMA(R) HPV Assay ([employer] This assay detects E6/E7 viral messenger RNA (mRNA) from 14 high-risk HPV types (16,18,31,33,35,39,45,51, 52,56,58,59,66,68). For additional information please refer to: http://education.[employer]/faq/KKQ019i4 (This link is being provided for informational/ educational purposes only.) The analytical performance characteristics of this assay have been determined by [employer] [place], [place]. The modifications have not been cleared or approved by the FDA. This assay has been validated pursuant to the CLIA regulations and is used for clinical purposes. Test Performed by [facility], [email or web address] [facility], [address] [place] [address] Sekou Orlando M.D., Ph.D., Director of Laboratories , CLIA [id number] Please note: Effective 10/22/2015, HPV testing will be performed using [employer]'s APTIMA test which targets mRNA. Detecting mRNA instead of DNA, as in older methods, offers significant improvements in specificity. 03/16/2019 9:45 AM EST Historical Provider HISTORICAL/NON ORDERABLE LABS Final Result [id number] [address] [place] [address], [place] * HEPATITIS C ANTIBODY RFLX (01/12/2019 10:04 AM EST) HEPATITIS C ANTIBODY NONREACTIVE NONREACTIVE [facility] Comment: Antibodies to HCV not detected; does not exclude early acute HCV infection. 01/12/2019 10:0 4 AM EST us Marley Jalloh MD HISTORICAL/NON ORDERABLE L ABS Final Result [facility] [address] from Last 3 Months or Most Recently Relevant to Health Maintenance Insurance [facility] MEDICAID STAND ADULT Care Teams Collar Fuser Relationship Specialty Start Date End Date Kaitlin Chilel FNP [address] [place] [address] PCP - General Family Medicine 10/26/24
--- OUTSIDE RECORDS SUMMARY | 2024-10-27 09:53 | XMS_ITS | Encounter Summary ---
Author Organization [facility], Address [address] [place] [address] Phone Care Team Providers Care Retort Operator Name Role Phone Elroy [place] Primary Care Provider Encounter Details Date Type Department Care Team (Late st Contact Info) Description 10/25/2024 Documentation Only [facility], [address] [place] [phone] Ellyn Goff [address] [place] [address] Social History Tobacco Use Types Packs/Day Years [...] on filedocumented in this encounter Care Teams Retort Operator Relationship Specialty Start Date End Date ElroyZakiya [address] [place] [address] PCP - General 05/31/21 documented as of this encounter
--- OUTSIDE RECORDS SUMMARY | 2024-10-27 09:53 | XMS_ITS | Encounter Summary ---
Author Organization [facility], Address [address] [place] [address] Phone Care Team Providers Care Mba Internship Name Role Phone Elroy [place] Primary Care Provider [phone] Encounter Details Date Type Department Care Team (Late st Contact Info) Description 10/25/2024 Documentation Only [facility], [address] [place] [phone] Ellyn Goff [address] [place] [address] Social History Tobacco Use Types [...] on filedocumented in this encounter Care Teams Mba Internship Relationship Specialty Start Date End Date ElroyZakiya [address] [place] [address] PCP - General 05/31/21 documented as of this encounter
--- OUTSIDE RECORDS SUMMARY | 2024-10-27 09:53 | XMS_ITS | Encounter Summary ---
Author Organization [facility], Address [address] [place] [address] Phone Care Team Providers Care Principal Associate Name Role Phone [facility] Primary Care Provider [phone] Reason for Visit * Reason Comments Med Change Request Encounter Details Date Type Department Care Team (Late st Contact Info) Description 06/17/2022 Refill [facility] [address] [facility] [address] [place] [address] Rush Cedeño MD [address] [place] [phone] Social History Tobacco Use Types Packs/Day Years [...] on filedocumented in this encounter Care Teams Principal Associate Relationship Specialty Start Date End Date Elroy [place] [address] [place] [address] PCP - General 05/31/21 documented as of this encounter
--- OUTSIDE RECORDS SUMMARY | 2024-10-27 09:53 | XMS_ITS | Encounter Summary ---
Author Organization [facility], Address [address] [place] [address] Phone Care Team Providers Care Pediatric Dentist Name Role Phone [facility] Primary Care Provider [phone] Encounter Details Date Type Department Care Team (Late st Contact Info) Description 10/18/2024 Office Communication [facility], [address] [place] [phone] Georgiana Smiley [address] [place] [phone] Social History Tobacco Use Types Packs/Day Years [...] on file documented as of this encounter Miscellaneous Notes * Telephone Encounter - Ellyn Goff - 10/25/2024 10:34 AM EDT Notified scheduling and faxed necessary documents. Will fax order and anaphylaxis once it is determined which form of iron is the plans preferred. * Telephone Encounter - Susie Tobin RN - 10/20/2024 3:57 PM EDT REFERRAL FOR IV IRON On 10/17/2024 Tsats 14, Ferritin 44, and Hgb 10.5. Please obtain orders for IV iron. Depending on insurance coverage, medication dosage per protocol will be: FEREHEME 510 mg: []1 dose [x]2 doses OR VENOFER 300 mg: [x]2 doses VENOFER 200 mg: []5 doses Thank you * Telephone Encounter - Georgiana Smiley - 10/18/2024 2:02 PM EDT Pt seen for CKD education and labs were done 10/17/2024 Labs: Hgb=10.5, TSat= 14, Ferritin is Not resulted yet, GFR: 18 . Please address-F/U for anemia mgt, accordingly. Thanks you! documented in this encounter Plan of Treatment Not on file documented as of this encounter Visit Diagnoses Not on filedocumented in this encounter Care Teams Pediatric Dentist Relationship Specialty Start Date End Date [place] Zakiya [address] [place] [address] PCP - General 05/31/21 documented as of this encounter
--- OUTSIDE RECORDS SUMMARY | 2024-10-27 09:53 | XMS_ITS | Clinical Summary ---
Author Organization [facility], Address [address] [facility] [address] [place] [address] Phone Care Team Providers Care Car Sales Representative Name Role Phone [facility] Primary Care Provider [phone] Allergies Active Allergy Reactions Criticality Noted Date Comments Ferumoxytol Other (see comments) Medium 12/16/2017 Other reaction(s): Unknown Medications chlorthalidone 25 MG tablet TAKE 1/2 TABLET BY MOUTH EVERY DAY 30 tablet 3 11/27/19 22 Active Additional Information Patient not taking.Reported on 09/27/2024 amLODIPine-mark azepril (LOTREL 5-20) 5-20 MG per capsule Take 1 capsule by mouth 1 (one) time each day NO MORE REFILLS NEED APPOINTMENT 30 capsule 06/18/19 23 Active Additional Information Patient not taking.Reported on 09/27/2024 acetaZOLAMIDE (DIAMOX) 250 MG tablet Take 250 mg by mouth in the morning and 250 mg in the evening. 05/26/19 25 Active labetalol (NORMODYNE) 100 MG tablet Take 2 tablets (200 mg total) by mouth in the morning and 2 tablets (200 mg total) in the evening and 2 tablets (200 mg total) before bedtime. 270 tablet 5 09/28/19 25 Active calcitriol (Rocaltrol) 0.5 MCG capsule Take 1 capsule (0.5 mcg total) by mouth 3 times weekly on Thursday 36 capsule 3 09/29/19 25 Active ergocalciferol (Drisdol) 1.25 MG (85387 UT) capsule Take 1 capsule (50,000 Units total) by mouth 1 (one) time per week 12 capsule 3 09/28/19 25 025 Active Fe Tabs 325 (65 Fe) MG EC tablet Take 1 tablet (325 mg total) by mouth 1 (one) time each day with breakfast Do not crush, chew, or split. 30 tablet 3 09/28/19 25 025 Active Empagliflozin (Jardiance) 10 MG tablet Take 10 mg by mouth 1 (one) time each day with breakfast 90 tablet 3 10/12/19 25 026 Active Jardiance 10 MG tablet Take 10 mg by mouth 1 (one) time each day with breakfast 09/10/19 25 025 Discontinued Active Problems Problem Noted Date Diagnosed Date Chronic kidney disease, stage 4 (severe) 025 Stage 5 chronic kidney disease 07/12/2024 IgA nephropathy 08/01/2019 Stage 3b chronic kidney disease 03/18/2019 Overview (02/13/2020): Update for Diagnosis Load Essential hypertension 03/18/2019 Proteinuria 03/18/2019 Resolved Problems Problem Noted Date Diagnosed Date Resolved Date Blood in urine 03/18/2019 01/28/2021 Encounters Date Type Department Care Team Description 10/26/2024 8:00 AM EDT Office Visit [facility] Vascular Access [address] [place] [address] Esvin De La Rosa MD Chronic kidney disease, stage 4 (severe) ([facility]) (Primary Dx) 10/25/2024 Documentation Only [facility] [place] [address] [place] [address] Ellyn Goff 10/25/2024 Documentation Only [facility] [place] [address] [place] [phone] Ellyn Goff 10/25/2024 Telephone [facility] Vascular Access [address] [place] [address] Cuellar, Pepper 10/18/2024 Office Communication [facility] [address] [place] [address] Georgiana Smiley 10/18/2024 Documentation Only [facility] [address] [place] [address] Georgiana Smiley 10/17/2024 Documentation Only [facility] [address] [place] [address] Georgiana Smiley 10/09/2024 Refill [facility] [address] [place] [address] Rush Cedeño MD 09/29/2024 Office Communication [facility] [address] [place] [address] Nguyễn Melendez [place] 09/28/2024 Documentation Only [facility] [address] [place] [address] Georgiana Smiley 09/27/2024 4:00 PM EDT Office Visit [facility] [address] [place] [address] Rush Cedeño MD Stage 5 chronic kidney disease (HCC) (Primary Dx); IgA nephropathy; Essential hypertension 09/27/2024 Office Communication [facility] [place] [phone] Rush Cedeño MD from Last 3 Months Family History Medical History Relation Comments Diabetes Father Heart disease Father Hypertension Father Diabetes Mother Heart disease Mother Hypertension Mother Relation Status Comments Father Unknown Mother Unknown Social History Tobacco Use Types Packs/Day Years Used Date Smoking Tobacco: Never Alcohol Use Standard Drinks/Week Comments No 0 (1 standard drink = 0.6 oz pur e alcohol) Comments Unknown Sex and Gender Information Value Date Recorded Sex Assigned at Not on file Legal Sex Female 4:30 PM EST Gender Identity Not on file Sexual Orientation Not on file Last Filed Vital Signs Vital Sign Reading Time Taken Comments Blood Pressure 116/66 12/16/2017 12:01 PM EST Pulse 74 12/03/2017 12:00 PM EDT Temperature - - Respiratory Rate 16 12/03/2017 12:00 PM EDT Oxygen Saturation - - Inhaled Oxygen Concentration - - Weight 86.6 kg (191 lb) 12/03/2017 12:00 PM EDT Height 160 cm (5' 3 ) 12/16/2017 12:00 PM EST Body Mass Index 33.83 12/03/2017 12:00 PM EDT Plan of Treatment Health Maintenance Due Date Last Done Comments Breast Cancer Screening 1975 Hepatitis B Vaccine (1 of 3 - 19+ 3-dose series) 10/13 Pneumococcal Vaccine: 50+ Years (1 of 2 - PCV) 993 Colorectal Cancer Screening: Annual FOBT 2022 Colorectal Cancer Screening: Colonoscopy 2022 Colorectal Cancer Screening: Sigmoidoscopy 2022 Influenza Vaccine (#1) 2024 Procedures Procedure Name Priority Date/Time Associated Diagnosis Comments SPECIMEN STATUS REPORT Routine 10/17/2024 11:30 AM EDT FERRITIN Routine 10/17/2024 11:30 AM EDT SPECIMEN STATUS REPORT Routine 10/17/2024 11:30 AM EDT CBC Routine 10/17/2024 11:30 AM EDT Stage 5 chronic kidney disease (HCC) IgA nephropathy Essential hypertension IRON PANEL (FE, TIBC, TSAT) Routine 10/17/2024 11:30 AM EDT Stage 5 chronic kidney disease (HCC) IgA nephropathy Essential hypertension PTH, INTACT Routine 10/17/2024 11:30 AM EDT Stage 5 chronic kidney disease (HCC) IgA nephropathy Essential hypertension VITAMIN D 25 HYDROXY Routine 10/17/2024 11:30 AM EDT Stage 5 chronic kidney disease (HCC) IgA nephropathy Essential hypertension RENAL FUNCTION PANEL Routine 10/17/2024 11:30 AM EDT Stage 5 chronic kidney disease (HCC) IgA nephropathy Essential hypertension from Last 3 Months Results * SPECIMEN STATUS REPORT (10/17/2024 11:30 AM EDT) Only the most recent of2 resultswithin the time period is included. Specimen Status Comment [facility] [place] Comment: Written Authorization Written Authorization Written Authorization Received. Authorization received from Gely Walters for Link Request on 10-19-2024 Logged by Sukhi Pa 10/17/2024 11:3 0 AM EDT 10/17/2024 Comment:Blood, Venou us Rush Cedeño MD LAB BLOOD ORDERABLES Final Resul t Performing Organization Address City/[facility]/ZIP Co de Phone Number LABCO [facility] [address] [place] [address] * (ABNORMAL) Iron Panel (Fe, TIBC, TSAT) (10/17/2024 11:30 AM EDT) TIBC 332 250 - 450 ug/dL [facility] UIBC 287 131 - 425 ug/dL [facility] Iron 45 27 - 159 ug/dL [facility] Iron Saturation (TSat) 14(L) 15 - 55 % [facility] Blood Venous blood / Unknown 10/17/2024 11:30 AM EDT 10/17/2024 Comment:Blood, Venou us Rush Cedeño MD LAB BLOOD ORDERABLES Final Resul t LAB3CLogic [facility] [address] [place] [address] * (ABNORMAL) Vitamin D 25 Hydroxy (10/17/2024 11:30 AM EDT) Vitamin D, 25-OH, Total 26.8(L) 30.0 - 100.0 ng/mL [facility] Comment: Vitamin D deficiency has been defined by the [place] of Medicine and an Endocrine Society practice guideline as a level of serum 25-OH vitamin D less than 20 ng/mL (1,2). The Endocrine Society went on to further define vitamin D insufficiency as a level between 21 and 29 ng/mL (2). 1. IOM ([place] of Medicine). 2010. Dietary reference intakes for calcium and D. [place]: The National Academies Press. 2. Arturo MF, Fariba BEST, Emma PARISH, et al. Evaluation, treatment, and prevention of vitamin D deficiency: an Endocrine Society clinical practice guideline. JCEM. 2010; 96(7):1911-30. Blood Venous blood / Unknown 10/17/2024 11:30 AM EDT 10/17/2024 Comment:Blood, Venou us Rush Cedeño MD LAB BLOOD ORDERABLES Final Resul t [facility] [address] [place] [address] * (ABNORMAL) CBC (10/17/2024 11:30 AM EDT) WBC 5.5 3.4 - 10.8 x10E3/uL [facility] RBC 3.99 3.77 - 5.28 x10E6/uL [facility] Hemoglobin 10.5(L) 11.1 - 15.9 g/dL [facility] Hematocrit 33.0(L) 34.0 - 46.6 % [facility] MCV 83 79 - 97 fL [facility] MCH 26.3(L) 26.6 - 33.0 pg [facility] MCHC 31.8 31.5 - 35.7 g/dL [facility] RDW 14.4 11.7 - 15.4 % [facility] Platelets 177 150 - 450 x10E3/uL [facility] Blood Venous blood / Unknown 10/17/2024 11:30 AM EDT 10/17/2024 Comment:Blood, Venou us Rush Cedeño MD LAB BLOOD ORDERABLES Final Resul t Performing Organization Address City/[facility]/ZIP Co de Phone Number [facility] [address] [place] [address] * Ferritin (10/17/2024 11:30 AM EDT) Pathologist [facility] Ferritin 44 15 - 150 ng/mL [facility] 10/17/2024 11:3 0 AM EDT 10/17/2024 Comment:Blood, Venou us Rush Cedeño MD LAB BLOOD ORDERABLES Final Resul t Performing Organization Address City/[facility] [[email or web address]] Co de Phone Number [facility] [address] [place] [address] * (ABNORMAL) Renal Function Panel (10/17/2024 11:30 AM EDT) Glucose 85 70 - 99 mg/dL [facility] BUN 36(H) 6 - 24 mg/dL [facility] Creatinine 3.04(H) 0.57 - 1.00 mg/dL [facility] eGFR CKD-EPI CR 2020 18(L) >59 mL/min/1.7 3 [facility] BUN/Creatinine Ratio 12 9 - 23 [facility] Sodium 140 134 - 144 mmol/L [facility] Potassium 4.2 3.5 - 5.2 mmol/L [facility] Chloride 108(H) 96 - 106 mmol/L [facility] Bicarbonate (CO2) 15(L) 20 - 29 mmol/L [facility] Calcium 9.1 8.7 - 10.2 mg/dL [facility] Phosphorus 3.8 3.0 - 4.3 mg/dL [facility] Albumin 4.0 3.8 - 4.9 g/dL [facility] Blood Venous blood / Unknown 10/17/2024 11:30 AM EDT 10/17/2024 Comment:Blood, Venou us Rush Cedeño MD LAB BLOOD ORDERABLES Final Resul t [facility] [address] [place] [address] from Last 3 Months Insurance [facility] [place] [address] Care Teams Car Sales Representative Relationship Specialty Start Date End Date [facility] [address] [place] [address] PCP - General 05/31/21
--- OUTSIDE RECORDS SUMMARY | 2024-10-27 09:53 | XMS_ITS | Encounter Summary ---
Author Organization [facility], Address [address] [place] [address] Phone Care Team Providers Care Montessori Preschool Teacher Name Role Phone [facility] Primary Care Provider [phone] Reason for Visit * Reason Comments Med Refill Encounter Details Date Type Department Care Team (Late st Contact Info) Description 03/09/2022 Refill [facility] [address] [facility] [address] [place] [address] Rush Cedeño MD [address] [place] [phone] Social History Tobacco Use Types Packs/Day Years [...] on filedocumented in this encounter Care Teams Montessori Preschool Teacher Relationship Specialty Start Date End Date [facility] [address] [place] [address] PCP - General 05/31/21 documented as of this encounter
--- OUTSIDE RECORDS SUMMARY | 2024-10-27 09:53 | XMS_ITS | Encounter Summary ---
Author Organization [employer] Address [address] [facility] 7t [place] [address] Care Team Providers Care Online Producer Name Role Phone Kaitlin Chilel MANUFACTURING ASSOCIATE Primary Care Provider [phone] Encounter Details Date Type Department Care Team (Latest Contact Info) Description 10/26/2024 Travel Social History Tobacco Use Types Packs/Day Years [...] Q2 Not on file 10/19/2024 Comments Unknown Sex and Gender Information Value Date Recorded Sex Assigned at Female 12/09/2021 10:16 AM EDT Legal Sex Female 10:16 AM EDT Gender Identity Female 12/09/2021 10:16 AM EDT Sexual Orientation Straight 12/09/2021 10 :16 AM EDT documented as of this encounter Functional Status * Over the [...] irritable 0 10/26/2024 3:50 PM EDT Sofi Kim [place] Feeling afraid as if somethi ng awful might happen 0 10/26/2024 3:50 PM EDT Sofi Kim MA PATRICIA-7 Total Score 0 10/26/2024 3:50 PM EDT Sofi Kim [place] documented as of this encounter Plan of Treatment Not on file documented as of this encounter Visit Diagnoses Not on filedocumented in this encounter Additional Health Concerns Assessment Noted Time PHQ-9 Depression Total Score: 0 10/27/19 25 3:50 PM EDT documented as of this encounter Care Teams Online Producer Relationship Specialty Start Date End Date Kaitlin Chilel FNP [address] [place] [address] PCP - General Family Medicine 10/26/24 documented as of this encounter
--- OUTSIDE RECORDS SUMMARY | 2024-10-27 09:53 | XMS_ITS | Encounter Summary ---
Author Organization [email or web address] Address [address] [facility] [address] [place] [address] Care Team Providers Care Prescription Clerk Name Role Phone Unavailable Primary Care Provider Unavailabl e Reason for Visit * Reason Onset Date Comments CHART PREP 10/25/2024 Encounter Details Date Type Department Care Team (Late st Contact Info) Description 10/25/2024 Telephone [facility] [address] [place] [address] [place] CHART PREP Social History Tobacco Use Types Packs/Day Years [...] AM EDT documented as of this encounter Miscellaneous Notes * Telephone Encounter - Malorie Samaniego MA - 10/25/2024 2:55 PM EDT Chart Prep Labs: done Images: done Referrals: not applicable Vaccines due: Covid, Flu, PCV20, Tdap, Td, Zoster, and DTAP Screenings: colonoscopy, mammogram, pap smear, and LMP Overdue care gaps: SBIRT, PHQ-9, PATRICIA-7, Disability screen, and Tobacco documented in this encounter Plan of Treatment Not on file documented as of this encounter Visit Diagnoses Not on filedocumented in this encounter
--- OUTSIDE RECORDS SUMMARY | 2024-10-27 09:53 | XMS_ITS | Encounter Summary ---
Author Organization [facility], Address [address] [place] [address] Phone Care Team Providers Care Purification Supervisor Name Role Phone [facility] Primary Care Provider [phone] Encounter Details Date Type Department Care Team (Late st Contact Info) Description 10/25/2024 Telephone [facility] Center [address] [place] [address] Pepper Cuellar [address] [place] [phone] Social History Tobacco Use Types Packs/Day [...] encounter Miscellaneous Notes * Telephone Encounter - Pepper Cuellar - 10/25/2024 9:41 AM EDT OFFICE VISIT REMINDER COMMUNICATION Spoke to pt and confirmed office visit scheduled on 10/26/24. Covid screening also completed: YES NO COMMENTS Do you have or have you had COVID or coronavirus? [] [x] Have you been exposed to COVID or coronavirus? [] [x] Do you live with anyone with COVID or who has been exposed? [] [x] Have you had any COVID symptoms in the past month such as fever, chills, cough, sore throat, shortness of breath or any other cold/fu symptoms? [] [x] Have you been hospitalized in the past 2 weeks? [] [x] Do you reside in a facility? [] [x] documented in this encounter Plan of Treatment Not on file documented as of this encounter Visit Diagnoses Not on filedocumented in this encounter Care Teams Purification Supervisor Relationship Specialty Start Date End Date [facility] [address] [place] [address] PCP - General 05/31/21 documented as of this encounter
--- OUTSIDE RECORDS SUMMARY | 2024-10-27 09:53 | XMS_ITS | Encounter Summary ---
Author Organization [facility], Address [address] [place] [address] Phone Care Team Providers Care Rn Compliance Name Role Phone [facility] Primary Care Provider [phone] Encounter Details Date Type Department Care Team (Late st Contact Info) Description 07/15/2024 Documentation Only [facility], [address] [facility] [place] [phone] Rush Cedeño MD [address] [facility] [place] [phone] Social History Tobacco Use Types Packs/Day Years [...] on filedocumented in this encounter Care Teams Rn Compliance Relationship Specialty Start Date End Date Zakiya Abbasi [address] [place] [address] PCP - General 05/31/21 documented as of this encounter
[2024-10-27 12:19] LABS: Thyroid Stimulating Hormone 1.98 uIU/mL (0.32-4.0)
[2024-10-27 12:20] LABS: HIV Num 1 0.04 S/CO (0.00-0.99)
[2024-10-27 13:55] LABS: CT PCR Urine NOT DETECTED (Not Detect.); NG PCR Urine NOT DETECTED (Not Detect.)
== END 2024-10-27 08:40 | disposition home or self-care (01) ==
LOC: HO.HHCL 08:39
PROVIDERS: PCP Nurse Practitioner Family; Visit Provider Nurse Practitioner Family
DX: Z00.00 Encounter for general adult medical examination without abnormal findings (principal)
CPT/HCPCS: 84443; 87389; 87491; 87591

== ENCOUNTER 2024-11-14 15:22 | Emergency (ER) | payer OTHER, SELFPAY ==
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
--- NOTE | ~2024-11-14 | XR_ITS ---
CLINICAL HISTORY: Fall 3 view right hand Comparison: None provided Findings: Bones intact. No dislocations. No significant arthritic change. No erosions. No radiopaque foreign body. IMPRESSION: No acute fracture or dislocation. This document has been electronically signed by: Nely Cooper DO on 11/14/2024 19:20:09
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
[2024-11-14 15:31] VITALS: BP 140/98; PULSE 70; O2SAT 98
[2024-11-14 16:12] VITALS: BP 178/77; PULSE 59; RESP 16; TEMP 36.1; O2SAT 97; BMI 37.5
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
[2024-11-14 18:32] VITALS: BP 184/85; PULSE 55; RESP 20; TEMP 36.6; O2SAT 100
--- OUTSIDE RECORDS SUMMARY | 2024-11-14 18:41 | XMS_ITS | Encounter Summary ---
Author Organization [facility], Address [address] [place] [address] Phone Care Team Providers Care Communications Supervisor Name Role Phone [facility] Primary Care Provider [phone] Reason for Visit * Reason Comments Med Refill Encounter Details Date Type Department Care Team (Late st Contact Info) Description 06/16/2022 Refill [facility] [address] [facility] [address] [place] [phone] Rush Cedeño MD [address] [place] [phone] Social History Tobacco Use Types Packs/Day Years [...] on filedocumented in this encounter Care Teams Communications Supervisor Relationship Specialty Start Date End Date [place] [address] [place] [address] PCP - General 05/31/21 documented as of this encounter
--- OUTSIDE RECORDS SUMMARY | 2024-11-14 18:41 | XMS_ITS | Encounter Summary ---
Author Organization [facility], Address [address] [place] [address] Phone Care Team Providers Care Caddie Supervisor Name Role Phone [facility] Primary Care Provider [phone] Reason for Visit * Reason Comments Med Refill Encounter Details Date Type Department Care Team (Late st Contact Info) Description 04/02/2021 [facility]ill [facility] [address] [place] [phone] Rush Cedeño MD [address] [place] [phone] Social History Tobacco Use Types Packs/Day Years [...] on filedocumented in this encounter Care Teams Caddie Supervisor Relationship Specialty Start Date End Date Elroy Zakiya [address] [place] [address] PCP - General 05/31/21 documented as of this encounter
--- OUTSIDE RECORDS SUMMARY | 2024-11-14 18:41 | XMS_ITS | Encounter Summary ---
Author Organization [facility], Address [address] [place] [address] Phone Care Team Providers Care Asphalt Mixing Machine Operator Name Role Phone [facility] Primary Care Provider [phone] Encounter Details Date Type Department Care Team (Late st Contact Info) Description 11/14/2024 Telephone [facility], [address] [place] [address] Georgiana Smiley [address] [place] [address] [place] [phone] Social History Tobacco Use Types Packs/Day Years [...] encounter Miscellaneous Notes * Telephone Encounter - Georgiana Smiley - 11/14/2024 9:55 AM EDT Author F/U call regarding progress with iron transfusions and well being. documented in this encounter Plan of Treatment Not on file documented as of this encounter Visit Diagnoses Not on filedocumented in this encounter Care Teams Asphalt Mixing Machine Operator Relationship Specialty Start Date End Date Elroy Zakiya [address] [place] [address] PCP - General 05/31/21 documented as of this encounter
--- OUTSIDE RECORDS SUMMARY | 2024-11-14 18:41 | XMS_ITS | Encounter Summary ---
Author Organization [facility], Address [address] [place] [address] Phone Care Team Providers Care Field Installer Name Role Phone [facility] Primary Care Provider [phone] Encounter Details Date Type Department Care Team (Late st Contact Info) Description 10/31/2024 Documentation Only [facility], [address] [place] [place] [phone] Ellyn Goff [address] [place] [address] Social History Tobacco Use Types [...] on filedocumented in this encounter Care Teams Field Installer Relationship Specialty Start Date End Date [address] [place] [address] PCP - General 05/31/21 documented as of this encounter
--- OUTSIDE RECORDS SUMMARY | 2024-11-14 18:41 | XMS_ITS | Clinical Summary ---
Author Organization [employer] Address [address] [place] [address] [address] [place] [address] Care Team Providers Care Imaging Tech Name Role Phone Kaitlin Chilel [employer] COUNTER PERSON Primary Care Provider Allergies Active Allergy Reactions Criticality Noted Date Comments Ferumoxytol Unknown Medium 12/16/2017 Other reaction(s): Unknown Other reaction(s): Unknown Medications Jardiance 10 MG Take 10 mg by mouth with breakfast. 5 10/12/19 26 Active ergocalciferol (Vitamin D-2) 1.25 MG (11195 UT) capsule Take 50,000 Units by mouth [...] and at bedtime for pain. 5 10/27/19 Discontinu ed(Other) Active Problems Problem Noted Date Diagnosed Date Headache 10/25/2024 Essential hypertension 03/18/2019 Chronic kidney disease, stage 4 (severe) ([facility]/ C) 03/18/2019 Overview (10/25/2024): Update for Diagnosis Load Migraine 06/30/2011 Encounters Date Type Department Care Team Description 10/26/2024 2:45 PM EDT Office Visit [address] [address] Kaitlin Chilel FNP Well adult exam (Primary Dx); Encounter for immunization; Uncontrolled hypertension; CKD stage 4 secondary to hypertension (CMS/[facility]); Anemia due to stage 4 chronic kidney disease ([facility]/HCC); Heart murmur 10/26/2024 Travel 10/25/2024 Telephone [facility] [address] [place] [phone] Malorie Samaniego [place] CHART PREP 10/19/2024 Travel 10/19/2024 Patient Outreach [address] [address] Kaitlin Chilel FNP Pre-visit Planning (SDOH screening [...] series) 2048 Hepatitis C Screening Completed 01/12/2019 Pneumococcal Vaccine: 50+ Years Completed 10/26/2024, 11/14/2005 HIV Screening Completed 10/27/2024, 04/0 07/2021, 01/12/2019 HIB Vaccines Aged Out No longer eligi [...] Procedure Name Priority Date/Time Associated Diagnosis Comments TSH Routine 10/27/2024 9:04 AM EDT Well adult exam HIV 1/2 ANTIGEN/ANTIBODY, FOURTH GENERATION W/RFL Routine 10/27/2024 9:04 AM EDT Well adult exam CHLAMYDIA/TRICHOMONA S/NEISSERIA GONORRHOEAE, PCR, URINE Routine 10/27/2024 9:04 AM EDT Well adult exam LIPID PANEL, STANDARD Routine 05/15/2021 10:02 AM EDT MAMMOGRAM GENERIC Routine 07/16/2020 9:0 0 AM EDT Z HISTORICAL HPV MRNA E6/E7 Routine 03/16/2019 9:[address] [facility] HISTORICAL HEPATITIS C ANTIBODY RFLX Routine 01/12/2019 10:04 AM EST from Last 3 Months or Most Recently Relevant to Health Maintenance Results * Chlamydia/N. Gonorrhoeae, PCR, Urine (10/27/2024 9:04 AM EDT) CT PCR, Urine NOT DETECTED Not Detect. [facility] Comment:A not detected test result does not exclude the possibilityof infection because test results can be affected byimproper specimen collection, concurrent antibiotic therapy,or the number of organisms in the specimen which may bebelow the sensitivity of the test. As with many diagnostictests, results from the Xpert CT/NG assay should beinterpreted in conjunction with other laboratory andclinical data available to the clinician.The Xpert CT/NG assay should not be used for the evaluationof suspected sexual abuse or for other medico-legalindications. Additional testing is recommended in anycircumstance when false positive or false negative resultscould lead to adverse medical, social or psychologicalconsequences. NG PCR, Urine NOT DETECTED Not Detect. [facility] Comment:A not detected test result does not exclude the possibilityof infection because test results can be affected byimproper specimen collection, concurrent antibiotic therapy,or the number of organisms in the specimen which may bebelow the sensitivity of the test. As with many diagnostictests, results from the Xpert CT/NG assay should beinterpreted in conjunction with other laboratory andclinical data available to the clinician.The Xpert CT/NG assay should not be used for the evaluationof suspected sexual abuse or for other medico-legalindications. Additional testing is recommended in anycircumstance when false positive or false negative resultscould lead to adverse medical, social or psychologicalconsequences. Urine (Urine, Random) 10/27/2024 9:04 AM EDT 10/27/2024 12:03 PM EDT Kaitlin Chilel [facility] URINE ORDERABLES Final Res ult [facility] [address] [place] [phone] * HIV-1/2 Antigen and Antibodies, Fourth Generation, with Reflexes (10/27/2024 9:04 AM EDT) HIV AB/AG Nonreactive Nonreactive [facility] Comment:HIV-1 p24 Ag and/or HIV-1/HIV-2 Ab not detected.A test result that is nonreactive does not exclude thepossibility of exposure to or infection with HIV-1 and/orHIV-2. Nonreactive results in this assay for individualswith prior exposure to HIV-1 and/or HIV-2 may be due toantigen and antibody levels that are below the limit ofdetection of this assay.The Flavor[employer]il HIV Ag/Ab Combo assay result andsupplemental assay results should be interpreted inconjunction with the patient's clinical presentation,history and other laboratory results. If the results areinconsistent with clinical evidence, additional testing issuggested to confirm the result. Blood Venous blood specimen / Unknown 10/27/2024 9:04 AM EDT 10/27/2024 11:39 AM EDT [facility] LAB BLOOD ORDERABLES Final Res ult Performing Organization Address [facility] Co de Phone Number [facility] [address] [place] [phone] * TSH (10/27/2024 9:04 AM EDT) Thyroid Stimulating Hormone 1.98 0.32 - 4.0 uIU/mL [facility] Comment:TSH 3rd Generation ( [employer]) Blood Venous blood specimen / Unknown 10/27/2024 9:04 AM EDT 10/27/2024 11:39 AM EDT [facility] LAB BLOOD ORDERABLES Final Res ult Performing Organization Address [facility] Co de Phone Number [facility] [address] [place] [phone] * (ABNORMAL) LIPID PANEL, STANDARD (05/15/2021 10:02 [...] factors. LDL-C is now calculated using the Tevin-Duncan calculation, which is a validated novel method providing better accuracy than the Friedewald equation in the estimation of LDL-C. Tevin SS et al. GUERLINE. 2013;310(19): 2239-7382 (http://GridPoint.GridCure/faq/LQQ175) Non-HDL Cholesterol 142(H) <130 mg/dL (calc) [facility] Comment: For patients with diabetes plus 1 major ASCVD risk factor, treating to a non-HDL-C goal of <100 mg/dL (LDL-C of <70 mg/dL) is considered a therapeutic option. Triglycerides 125 <150 mg/dL [facility] 05/15/2021 10:0 2 AM EDT [facility] AUTOMOTIVE [employer]S COUNTER PERSON LAB BLOOD ORDERABLES Final Re sult [facility] [address] * Mammography Report 1 (07/16/2020 9:00 AM EDT) Anatomical Region Laterality Modality Breast Bilateral Mammography 07/16/2020 9:00 AM EDT Narrative 07/17/2020 8:30 AM EDT Refer to the Notes tab for result details [facility] Procedure: Mammography Report 1 Procedure Note Provider, Zayda, - 05/04/2022 Refer to the Notes tab for result details [facility] Procedure: Mammography Report 1 Historical Provider MD RDZ BI PROCEDURES Final R esult * HPV mRNA E6/E7 (03/16/2019 9:45 AM EST) HPV mRNA E6/E7 Not Detected NOT DETECTED [facility] Comment: This test was performed using the APTIMA(R) HPV Assay ([employer] This assay detects E6/E7 viral messenger RNA (mRNA) from 14 high-risk HPV types (16,18,31,33,35,39,45,51, 52,56,58,59,66,68). For additional information please refer to: http://education.Instaradio/faq/MMY332r2 (This link is being provided for informational/ educational purposes only.) The analytical performance characteristics of this assay have been determined by [facility] [place]. The modifications have not been cleared or approved by the FDA. This assay has been validated pursuant to the CLIA regulations and is used for clinical purposes. Test Performed by [facility], [employer] [place], [address] [place] [address] Sekou Orlando M.D., Ph.D., Director of Laboratories , CLIA [id number] Please note: Effective 10/22/2015, HPV testing will be performed using [employer]'s APTIMA test which targets mRNA. Detecting mRNA instead of DNA, as in older methods, offers significant improvements in specificity. 03/16/2019 9:45 AM EST Historical Provider HISTORICAL/NON ORDERABLE LABS Final Result Performing Organization Address [facility] de Phone Number [facility] [address] * HEPATITIS C ANTIBODY RFLX (01/12/2019 10:04 AM EST) HEPATITIS C ANTIBODY NONREACTIVE NONREACTIVE [facility] Comment: Antibodies to HCV not detected; does not exclude early acute HCV infection. 01/12/2019 10:0 4 AM EST Marley Jalloh MD HISTORICAL/NON ORDERABLE L ABS Final Result Performing Organization Address [facility] Phone Number [facility] [address] from Last 3 Months or Most Recently Relevant to Health Maintenance Insurance N [facility]IAL [facility] MEDICAID STAND ADULT Care Teams Imaging Tech Relationship Specialty Start Date End Date Kaitlin Chilel FNP [address] [place] [phone] PCP - General Family Medicine 10/26/24
--- OUTSIDE RECORDS SUMMARY | 2024-11-14 18:41 | XMS_ITS | Clinical Summary ---
Author Organization [facility], Address [address] [place] [address] Phone Care Team Providers Care Drill Runner Helper Name Role Phone [facility] Primary Care Provider [phone] Allergies Active Allergy Reactions Criticality Noted Date Comments Ferumoxytol Other (see comments) Medium 12/16/2017 Other reaction(s): Unknown Medications chlorthalidone 25 MG tablet TAKE 1/2 TABLET BY MOUTH EVERY DAY 30 tablet 3 2 Active Additional Information Patient not taking.Reported on 09/27/2024 amLODIPine-leo zepril (LOTREL 5-20) 5-20 MG per capsule Take 1 capsule by mouth 1 (one) time each day NO MORE REFILLS NEED APPOINTMENT 30 capsule 3 Active Additional Information Patient not taking.Reported on 09/27/2024 acetaZOLAMIDE (DIAMOX) 250 MG tablet Take 250 mg by mouth in the morning and 250 mg in the evening. 5 Active labetalol (NORMODYNE) 100 MG tablet Take 2 tablets (200 mg total) by mouth in the morning and 2 tablets (200 mg total) in the evening and 2 tablets (200 mg total) before bedtime. 270 tablet 5 5 Active calcitriol (Rocaltrol) 0.5 MCG capsule Take 1 capsule (0.5 mcg total) by mouth 3 times weekly on Thursday 36 capsule 3 5 Active ergocalciferol (Drisdol) 1.25 MG (55729 UT) capsule Take 1 capsule (50,000 Units total) by mouth 1 (one) time per week 12 capsule 3 5 12/27/19 25 Active Empagliflozin (Jardiance) 10 MG tablet Take 10 mg by mouth 1 (one) time each day with breakfast 90 tablet 3 5 10/12/19 26 Active Fe Tabs 325 (65 Fe) MG EC tablet Take 1 tablet (325 mg total) by mouth 1 (one) time each day with breakfast Do not crush, chew, or split. 30 tablet 3 5 10/28/19 25 Active Problems Problem Noted Date Diagnosed Date Chronic kidney disease, stage 4 (severe) 025 Stage 5 chronic kidney disease 07/12/2024 IgA nephropathy 08/01/2019 Stage 3b chronic kidney disease 03/18/2019 Overview (02/13/2020): Update for Diagnosis Load Essential hypertension 03/18/2019 Proteinuria 03/18/2019 Resolved Problems Problem Noted Date Diagnosed Date Resolved Date Blood in urine 03/18/2019 01/28/2021 Encounters Date Type Department Care Team Description 11/14/2024 Telephone [facility] [address] [place] [address] Georgiana Smiley 10/31/2024 Documentation Only [facility] [address] [place] [address] Ellyn Goff 10/31/2024 Documentation Only [facility] [address] [place] [phone] Ellyn Goff 10/31/2024 Orders Only [facility] [address] [place] [address] Ellyn Goff Anemia in chronic kidney disease (Primary Dx); Other iron deficiency anemia; Stage 5 chronic kidney disease (HCC) 10/28/2024 Documentation Only [facility] [address] [place] [address] [place] [phone] Jody Gray 10/26/2024 8:00 AM EDT Office Visit [facility] [address] [place] [phone] Evsin De La Rosa MD Chronic kidney disease, stage 4 (severe) (HCC) (Primary Dx) 10/25/2024 Documentation Only [facility] [address] [place] [address] Ellyn Goff 10/25/2024 Documentation Only [facility] [address] [place] [address] Ellyn Goff 10/25/2024 Telephone [facility] [address] [place] [phone] Pepper Cuellar 10/18/2024 Office Communication [facility] [address] [place] [address] Georgiana Smiley 10/18/2024 Documentation Only [facility] [address] [place] [address] Georgiana Smiley 10/17/2024 Documentation Only [facility] [address] [place] [address] Georgiana Smiley 10/09/2024 Refill [facility] [address] [place] [address] Rush Cedeño MD 09/29/2024 Office Communication [facility] [address] [place] [address] Nguyễn Melendez [place] 09/28/2024 Documentation Only [facility] [address] [place] [address] Georgiana Smiley 09/27/2024 4:00 PM EDT Office Visit [facility] [address] [place] [address] Rush Cedeño MD Stage 5 chronic kidney disease (HCC) (Primary Dx); IgA nephropathy; Essential hypertension 09/27/2024 Office Communication [facility] [address] [place] [phone] Rush Cedeño MD from Last 3 Months [...] of 3 - 19+ 3-dose series) 10/13 Colorectal Cancer Screening: Annual FOBT 2022 Colorectal Cancer Screening: Colonoscopy 2022 Colorectal Cancer Screening: Sigmoidoscopy 2022 Influenza Vaccine (#1) 2024 Pneumococcal Vaccine: 50+ Years Completed Pneumococcal Vaccine: Peds ( 0 to 5 Years) and At-Risk Patients (6 to 49 Years) Discontinued 10/26/2024 Procedures Procedure Name Priority Date/Time Associated Diagnosis [...] time period is included. Specimen Status Comment [facility] Comment: Written Authorization Written Authorization Written Authorization Received. Authorization received from Gely Walters for Link Request on 10-19-2024 Logged by Sukhi Pa 10/17/2024 11:3 0 AM EDT 10/17/2024 Comment:Blood, Venou us Rush Cedeño MD LAB BLOOD ORDERABLES Final Resul t [facility] [address] [place] [address] * (ABNORMAL) Iron Panel (Fe, TIBC, TSAT) (10/17/2024 11:30 AM EDT) TIBC 332 250 - 450 ug/dL [facility] UIBC 287 131 - 425 ug/dL [facility] Iron 45 27 - 159 ug/dL [facility] Iron Saturation (TSat) 14(L) 15 - 55 % [facility] Blood Venous blood / Unknown 10/17/2024 11:30 AM EDT 10/17/2024 Comment:Blood, Venou us Rush Cedeño MD LAB BLOOD ORDERABLES Final Resul t [facility] [address] [place] [address] * (ABNORMAL) Vitamin D 25 Hydroxy (10/17/2024 11:30 AM EDT) Vitamin D, 25-OH, Total 26.8(L) 30.0 - 100.0 ng/mL [facility] Comment: Vitamin D deficiency has been defined by the Goodwell of Medicine and an Endocrine Society practice guideline as a level of serum 25-OH vitamin D less than 20 ng/mL (1,2). The Endocrine Society went on to further define vitamin D insufficiency as a level between 21 and 29 ng/mL (2). 1. IOM (Goodwell of Medicine). 2010. Dietary reference intakes for calcium and D. [place]: The National Academies Press. 2. Arturo MF, Fariba [place], Magnus-Kirby PARISH, et al. Evaluation, treatment, and prevention of vitamin D deficiency: an Endocrine Society clinical practice guideline. JCEM. 2010; 96(7):1911-30. Blood Venous blood / Unknown 10/17/2024 11:30 AM EDT 10/17/2024 Comment:Blood, Venou us Rush Cedeño MD LAB BLOOD ORDERABLES Final Resul t [facility] [address] [place] [address] * (ABNORMAL) CBC (10/17/2024 11:30 AM EDT) WBC 5.5 3.4 - 10.8 x10E3/uL [facility] RBC 3.99 3.77 - 5.28 x10E6/uL [facility] Hemoglobin 10.5(L) 11.1 - 15.9 g/dL [facility] Hematocrit 33.0(L) 34.0 - 46.6 % [facility] MCV 83 79 - 97 fL [facility] MCH 26.3(L) 26.6 - 33.0 pg [facility] MCHC 31.8 31.5 - 35.7 g/dL [facility] RDW 14.4 11.7 - 15.4 % [facility] Platelets 177 150 - 450 x10E3/uL [facility] Blood Venous blood / Unknown 10/17/2024 11:30 AM EDT 10/17/2024 Comment:Blood, Venou Rush Cedeño MD LAB BLOOD ORDERABLES Final Resul t [facility] [address] [place] [address] * Ferritin (10/17/2024 11:30 AM EDT) Ferritin 44 15 - 150 ng/mL [facility] 10/17/2024 11:3 0 AM EDT 10/17/2024 Comment:Blood, Venou us Rush Cedeño MD LAB BLOOD ORDERABLES Final Resul t [facility] [address] [place] [address] * (ABNORMAL) Renal Function Panel (10/17/2024 11:30 AM EDT) Glucose 85 70 - 99 mg/dL [facility] BUN 36(H) 6 - 24 mg/dL [facility] Creatinine 3.04(H) 0.57 - 1.00 mg/dL [facility] eGFR CKD-EPI CR 2020 18(L) >59 mL/min/1.7 3 [facility] BUN/Creatinine Ratio 12 9 - 23 [facility] Sodium 140 134 - 144 mmol/L [facility] Potassium 4.2 3.5 - 5.2 mmol/L [facility] Chloride 108(H) 96 - 106 mmol/L [facility] Bicarbonate (CO2) 15(L) 20 - 29 mmol/L [facility] Calcium 9.1 8.7 - 10.2 mg/dL [facility] Phosphorus 3.8 3.0 - 4.3 mg/dL [facility] Albumin 4.0 3.8 - 4.9 g/dL [facility] Blood Venous blood / Unknown 10/17/2024 11:30 AM EDT 10/17/2024 Comment:Blood, Venou Rush Cedeño MD LAB BLOOD ORDERABLES Final Resul t [facility] [address] [place] [address] from Last 3 Months Insurance [facility] Medicaid Care Teams Drill Runner Helper Relationship Specialty Start Date End Date [facility] [address] [place] [address] PCP - General 05/31/21
--- OUTSIDE RECORDS SUMMARY | 2024-11-14 18:41 | XMS_ITS | Encounter Summary ---
Author Organization [facility] [place], Address [address] [place] [address] Phone Care Team Providers Care Facilities Maintenance Technician Name Role Phone [facility] Primary Care Provider [phone] Reason for Visit * Reason Comments Med Change Request Encounter Details Date Type Department Care Team (Late st Contact Info) Description 06/17/2022 Refill [facility] [place] [facility] [address] [facility] [address] [place] [address] Rush Cedeño MD [address] [place] [phone] Social History Tobacco Use Types Packs/Day Years [...] on filedocumented in this encounter Care Teams Facilities Maintenance Technician Relationship Specialty Start Date End Date [place] [address] [place] [address] PCP - General 05/31/21 documented as of this encounter
--- OUTSIDE RECORDS SUMMARY | 2024-11-14 18:41 | XMS_ITS | Encounter Summary ---
Author Organization [facility] [place], Address [address] [place] [address] Phone Care Team Providers Care Technical Lead Name Role Phone [place] Primary Care Provider [phone] Encounter Details Date Type Department Care Team (Late st Contact Info) Description 09/27/2024 Office Communication [facility] [place], - [place] [address] [place] [phone] Rush Cedeño MD [address] [place] [address] [address] [address] Social History Tobacco Use Types Packs/Day Years [...] on filedocumented in this encounter Care Teams Technical Lead Relationship Specialty Start Date End Date Zakiya [address]asi [address] [place] [address] PCP - General 05/31/21 documented as of this encounter
--- OUTSIDE RECORDS SUMMARY | 2024-11-14 18:41 | XMS_ITS | Encounter Summary ---
Author Organization [facility] [place], Address [address] [place] [address] Phone Care Team Providers Care Extrusion Bender Name Role Phone [place] Primary Care Provider [phone] Encounter Details Date Type Department Care Team (Late st Contact Info) Description 07/15/2024 Documentation Only [facility] [place], [address] [place] [address] Rush Cedeño MD [address] [place] [place] [phone] Social History Tobacco Use Types Packs/Day Years [...] on filedocumented in this encounter Care Teams Extrusion Bender Relationship Specialty Start Date End Date Zakiya Abbasi [address] [place] [address] PCP - General 05/31/21 documented as of this encounter
--- OUTSIDE RECORDS SUMMARY | 2024-11-14 18:41 | XMS_ITS | Encounter Summary ---
Author Organization [facility] [place], Address [address] [place] [address] Phone Care Team Providers Care Home Decorator Name Role Phone [place] Primary Care Provider [phone] Encounter Details Date Type Department Care Team (Late st Contact Info) Description 10/25/2024 Documentation Only [facility] [place], [address] [place] [phone] Ellyn Goff [address] [place] [address] Social History Tobacco Use Types [...] on filedocumented in this encounter Care Teams Home Decorator Relationship Specialty Start Date End Date [place] wyl[place] [address] [place] [address] PCP - General 05/31/21 documented as of this encounter
--- OUTSIDE RECORDS SUMMARY | 2024-11-14 18:41 | XMS_ITS | Encounter Summary ---
Author Organization [facility] [place], Address [address] [place] [address] Phone Care Team Providers Care Beam Saw Operator Name Role Phone [facility] Primary Care Provider [phone] Reason for Visit * Reason Comments Med Refill Encounter Details Date Type Department Care Team (Late st Contact Info) Description 03/09/2022 Refill [facility] [place] - [address] [place] [facility] [address] [place] [address] Rush Cedeño MD [address] [place] [phone] Social History Tobacco Use Types Packs/Day Years [...] on filedocumented in this encounter Care Teams Beam Saw Operator Relationship Specialty Start Date End Date [place] [address] [place] [address] PCP - General 05/31/21 documented as of this encounter
--- OUTSIDE RECORDS SUMMARY | 2024-11-14 18:41 | XMS_ITS | Encounter Summary ---
Author Organization [facility] [place], Address [address] [place] [address] Phone Care Team Providers Care Platen Press Operator Apprentice Name Role Phone [place] Primary Care Provider [phone] Encounter Details Date Type Department Care Team (Late st Contact Info) Description 10/25/2024 Documentation Only [facility] [place], [address] [place] [phone] Ellyn Goff [address] [place] [address] Social History Tobacco Use Types [...] on filedocumented in this encounter Care Teams Platen Press Operator Apprentice Relationship Specialty Start Date End Date [place] [address] [place] [address] PCP - General 05/31/21 documented as of this encounter
--- OUTSIDE RECORDS SUMMARY | 2024-11-14 18:41 | XMS_ITS | Encounter Summary ---
Author Organization [facility] [place], Address [address] [place] [address] Phone Care Team Providers Care Elevator Starter Name Role Phone [place] Primary Care Provider [phone] Encounter Details Date Type Department Care Team (Late st Contact Info) Description 10/31/2024 Documentation Only [facility] [place], [address] [place] [address] Ellyn Goff [address] [place] [address] Social History Tobacco Use Types [...] on filedocumented in this encounter Care Teams Elevator Starter Relationship Specialty Start Date End Date ElroyZakiya [address] [place] [address] PCP - General 05/31/21 documented as of this encounter
[2024-11-14 20:04] VITALS: BP 184/85; PULSE 55; RESP 20; TEMP 36.6; O2SAT 100
== END 2024-11-14 20:04 | disposition home or self-care (01) ==
PROVIDERS: Emergency Provider Student in an Organized Health Care Education/Training Program
DX: S43.401A Unspecified sprain of right shoulder joint, initial encounter (principal); V43.62XA Car passenger injured in collision with other type car in traffic accident, initial encounter; Y93.9 Activity, unspecified; Y92.9 Unspecified place or not applicable; Y99.9 Unspecified external cause status; M25.511 Pain in right shoulder
CPT/HCPCS: 73030; 73080; 73090; 73120; 73130; 99283

== ENCOUNTER → 2024-11-14 16:23 | Outpatient (BNV) | payer OTHER, SELFPAY | PROVIDERS: Emergency Provider Student in an Organized Health Care Education/Training Program; Visit Provider Radiology Diagnostic Radiology | DX: M25.511 Pain in right shoulder (principal); M25.521 Pain in right elbow; M79.641 Pain in right hand; M79.631 Pain in right forearm | CPT/HCPCS: 73030; 73080; 73090; 73120; 73130 ==

== ENCOUNTER 2025-01-03 11:30 | Outpatient (AMB) | payer OTHER, SELFPAY ==
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
[2025-01-03 11:56] VITALS: BMI 37.5
--- OUTSIDE RECORDS SUMMARY | 2025-01-03 15:15 | XMS_ITS | Encounter Summary ---
Author Organization [facility] [place], Address [address] [place] [address] Phone Care Team Providers Care Beam Dyer Name Role Phone [place] Primary Care Provider [phone] Encounter Details Date Type Department Care Team (Late st Contact Info) Description 07/15/2024 Documentation Only [facility] [place], [address] [place] [phone] Rush Cedeño MD [address] [facility] [place] [address] Social History Tobacco Use Types Packs/Day Years [...] filedocumented in this encounter Care Teams Beam Dyer Relationship Specialty Start Date End Date Zakiya Abbasi [address] [place] [address] PCP - General 05/31/21 documented as of this encounter
--- OUTSIDE RECORDS SUMMARY | 2025-01-03 15:15 | XMS_ITS | Encounter Summary ---
Author Organization [facility], Address [address] [place] [address] Phone Care Team Providers Care Emergency Doctor Name Role Phone Elroy Spearman Primary Care Provider [phone] Encounter Details Date Type Department Care Team (Late st Contact Info) Description 10/31/2024 Documentation Only [facility], [address] [place] [phone] Ellyn Goff [address] [place] [address] Social History Tobacco Use Types [...] on filedocumented in this encounter Care Teams Emergency Doctor Relationship Specialty Start Date End Date Cliff IslandZakiya wylie [address] [place] [address] PCP - General 05/31/21 documented as of this encounter
--- OUTSIDE RECORDS SUMMARY | 2025-01-03 15:15 | XMS_ITS | Encounter Summary ---
Author Organization [facility], Address [address] [place] [address] Phone Care Team Providers Care Irrigator Sprinkling System Name Role Phone Elroy [place] Primary Care Provider [phone] Encounter Details Date Type Department Care Team (Late st Contact Info) Description 10/31/2024 Documentation Only [facility], [address] [place] [phone] Ellyn Goff [address] [place] [address] Social History Tobacco Use Types [...] on filedocumented in this encounter Care Teams Irrigator Sprinkling System Relationship Specialty Start Date End Date GolfZakiya wylie [address] [place] [address] PCP - General 05/31/21 documented as of this encounter
--- OUTSIDE RECORDS SUMMARY | 2025-01-03 15:16 | XMS_ITS | Encounter Summary ---
Author Organization [facility], Address [address] [place] [address] Phone Care Team Providers Care Personal Investment Adviser Name Role Phone [facility] Primary Care Provider Reason for Visit * Reason Comments Med Refill Encounter Details Date Type Department Care Team (Late st Contact Info) Description 06/16/2022 Refill [facility] - [address] [facility] 3 [place] [address] Rush Cedeño MD [address] [place] [phone] Social History Tobacco Use Types Packs/Day Years [...] on filedocumented in this encounter Care Teams Personal Investment Adviser Relationship Specialty Start Date End Date Elroy [place] [address] [place] [address] PCP - General 05/31/21 documented as of this encounter
--- OUTSIDE RECORDS SUMMARY | 2025-01-03 15:16 | XMS_ITS | Encounter Summary ---
Author Organization [facility], Address [address] [place] [address] Phone Care Team Providers Care Bus Driver Name Role Phone [facility] Primary Care Provider [phone] Reason for Visit * Reason Comments Med Change Request Encounter Details Date Type Department Care Team (Late st Contact Info) Description 06/17/2022 Refill [facility] - [address] [facility] 3 [place] [address] Rush Cedeño MD [address] [place] [phone] Social History Tobacco Use Types Packs/Day Years [...] on filedocumented in this encounter Care Teams Bus Driver Relationship Specialty Start Date End Date Elroy Zakiya [address] [place] [address] PCP - General 05/31/21 documented as of this encounter
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
--- OUTSIDE RECORDS SUMMARY | 2025-01-03 15:16 | XMS_ITS | Encounter Summary ---
Author Organization [facility], Address [address] [place] [address] Phone Care Team Providers Care Exchange Clerk Name Role Phone [place] Primary Care Provider [phone] Reason for Visit * Reason Comments Med Refill Encounter Details Date Type Department Care Team (Late st Contact Info) Description 04/02/2021 Refill [facility] [address] [place] [phone] Rush Cedeño MD [address] [place] [place] [phone] Social History Tobacco Use Types Packs/Day Years [...] on filedocumented in this encounter Care Teams Exchange Clerk Relationship Specialty Start Date End Date Elroy Zakiya [address] [place] [address] PCP - General 05/31/21 documented as of this encounter
--- OUTSIDE RECORDS SUMMARY | 2025-01-03 15:16 | XMS_ITS | Encounter Summary ---
Author Organization [facility], Address [address] [place] [address] Phone Care Team Providers Care Manager Action Name Role Phone Elroy [place] Primary Care Provider [phone] Encounter Details Date Type Department Care Team (Late st Contact Info) Description 10/25/2024 Documentation Only [facility], [address] [place] [phone] Ellyn Goff [address] [place] [address] Social History Tobacco Use Types [...] on filedocumented in this encounter Care Teams Manager Action Relationship Specialty Start Date End Date [place] Ayr[place]akiya wylie [address] [place] [address] PCP - General 05/31/21 documented as of this encounter
--- OUTSIDE RECORDS SUMMARY | 2025-01-03 15:16 | XMS_ITS | Encounter Summary ---
Author Organization [facility], Address [address] [place] [address] Phone Care Team Providers Care Resident Medical Officer Name Role Phone Elroy [place] Primary Care Provider [phone] Encounter Details Date Type Department Care Team (Late st Contact Info) Description 11/22/2024 Documentation Only [facility], [address] [place] [phone] Ellyn Goff [address] [place] [address] Social History Tobacco Use Types [...] on filedocumented in this encounter Care Teams Resident Medical Officer Relationship Specialty Start Date End Date LynnZakiya wylie [address] [place] [address] PCP - General 05/31/21 documented as of this encounter
--- OUTSIDE RECORDS SUMMARY | 2025-01-03 15:16 | XMS_ITS | Encounter Summary ---
Author Organization [facility], Address [address] [place] [address] Phone Care Team Providers Care Solvent Station Attendant Name Role Phone [facility] Primary Care Provider [phone] Reason for Visit * Reason Comments Med Refill Encounter Details Date Type Department Care Team (Late st Contact Info) Description 03/09/2022 Refill [facility] - [address] [facility] [address] [place] [address] Rush Cedeño MD [address] [place] [phone] Social History Tobacco Use Types Packs/Day Years [...] on filedocumented in this encounter Care Teams Solvent Station Attendant Relationship Specialty Start Date End Date Elroy [place] [address] [place] [address] PCP - General 05/31/21 documented as of this encounter
--- OUTSIDE RECORDS SUMMARY | 2025-01-03 15:16 | XMS_ITS | Clinical Summary ---
Author Organization [facility], Address [address] [facility] [address] [place] [address] Phone Care Team Providers Care Mainspring Reverse Winder Name Role Phone [facility] Primary Care Provider [phone] Allergies Active Allergy Reactions Criticality Noted Date [...] on Thursday 36 capsule 3 5 Active Empagliflozin (Jardiance) 10 MG tablet Take 10 mg by mouth 1 (one) time each day with breakfast 90 tablet 3 5 10/12/19 26 Active ergocalciferol (Drisdol) 1.25 MG (30855 UT) capsule Take 1 capsule (50,000 Units total) by mouth 1 (one) time per week 12 capsule 3 5 12/27/19 25 Active Problems Problem Noted Date Diagnosed Date Chronic kidney disease, stage 4 (severe) 025 Stage 5 chronic kidney disease 07/12/2024 IgA nephropathy 08/01/2019 Stage 3b chronic kidney disease 03/18/2019 Overview (02/13/2020): Update for Diagnosis Load Essential hypertension 03/18/2019 Proteinuria 03/18/2019 Resolved Problems Problem Noted Date Diagnosed Date Resolved Date Blood in urine 03/18/2019 01/28/2021 Encounters Date Type Department Care Team Description 11/29/2024 Documentation Only [facility] [place] [facility] Center [address] [place] [address] Raegan Del Toro 11/28/2024 Documentation Only [facility] [address] [place] [address] Raegan Del Toro 11/23/2024 Telephone [facility] [address] [place] [phone] Jody Gray 11/22/2024 Documentation Only [facility] [address] [place] [address] Ellyn Goff 11/14/2024 Telephone [facility] [address] [place] [address] Georgiana Smiley 10/31/2024 Documentation Only [facility] [address] [place] [address] Ellyn Goff 10/31/2024 Documentation Only [facility] [address] [place] [address] Ellyn Goff 10/31/2024 Orders Only [facility] [address] [place] [address] Ellyn Goff Anemia in chronic kidney disease (Primary Dx); Other iron deficiency anemia; Stage 5 chronic kidney disease (HCC) 10/28/2024 Documentation Only [facility] [address] [place] [phone] Jody Gray 10/26/2024 8:00 AM EDT Office Visit [facility] [address] [place] [phone] Esvin De La Rosa MD Chronic kidney disease, stage 4 (severe) (HCC) (Primary Dx) 10/25/2024 Documentation Only [facility] [address] [place] [address] Ellyn Goff 10/25/2024 Documentation Only [facility] [address] [place] [address] Ellyn Goff 10/25/2024 Telephone [facility] [address] [place] [phone] Pepper Cuellar 10/18/2024 Documentation Only [facility] [address] [place] [address] Georgiana Smiley 10/17/2024 Documentation Only [facility] [address] [place] [address] Georgiana Smiley 10/09/2024 Refill [facility] [place] [address] [place] [address] Rush Cedeño MD from Last 3 Months [...] is included. Specimen Status Comment Lab [facility] Comment: Written Authorization Written Authorization Written Authorization Received. Authorization received from Gely Walters for Link Request on 10-19-2024 Logged by Sukhi Pa 10/17/2024 11:3 0 AM EDT 10/17/2024 Comment:Blood, Venou us Rush Cedeño MD LAB BLOOD ORDERABLES Final Resul t [employer] [facility] [address] [place] [address] * (ABNORMAL) Iron Panel (Fe, TIBC, TSAT) (10/17/2024 11:30 AM EDT) TIBC 332 250 - 450 ug/dL [facility] UIBC 287 131 - 425 ug/dL [facility] Iron 45 27 - 159 ug/dL [facility] Iron Saturation (TSat) 14(L) 15 - 55 % [facility] Blood Venous blood / Unknown 10/17/2024 11:30 AM EDT 10/17/2024 Comment:Blood, Venou us Rush Cedeño MD LAB BLOOD ORDERABLES Final Resul t Performing Organization Address City/[facility]/ZIP Co de Phone Number [facility] [address] [place] [address] * (ABNORMAL) Vitamin D 25 Hydroxy (10/17/2024 11:30 AM EDT) Vitamin D, 25-OH, Total 26.8(L) 30.0 - 100.0 ng/mL [facility] Comment: Vitamin D deficiency has been defined by the [place] of Medicine and an Endocrine Society practice guideline as a level of serum 25-OH vitamin D less than 20 ng/mL (1,2). The Endocrine Society went on to further define vitamin D insufficiency as a level between 21 and 29 ng/mL (2). 1. IOM ([place] of Medicine). 2010. Dietary reference intakes for calcium and D. [place]: The National Academies Press. 2. Arturo MF, Fariba [place], Emma PARISH, et al. Evaluation, treatment, and prevention of vitamin D deficiency: an Endocrine Society clinical practice guideline. JCEM. 2010; 96(7):1911-30. Blood Venous blood / Unknown 10/17/2024 11:30 AM EDT 10/17/2024 Comment:Blood, Venou us Rush Cedeño MD LAB BLOOD ORDERABLES Final Resul t [facility] [facility] [address] [place] [address] * (ABNORMAL) CBC (10/17/2024 11:30 AM EDT) WBC 5.5 3.4 - 10.8 x10E3/uL [facility] RBC 3.99 3.77 - 5.28 x10E6/uL [facility] Hemoglobin 10.5(L) 11.1 - 15.9 g/dL [facility] Hematocrit 33.0(L) 34.0 - 46.6 % [facility] MCV 83 79 - 97 fL [facility] MCH 26.3(L) 26.6 - 33.0 pg [facility] MCHC 31.8 31.5 - 35.7 g/dL [facility] RDW 14.4 11.7 - 15.4 % [facility] Platelets 177 150 - 450 x10E3/uL [facility] Blood Venous blood / Unknown 10/17/2024 11:30 AM EDT 10/17/2024 Comment:Blood, Venou us Rush Cedeño MD LAB BLOOD ORDERABLES Final Resul t [facility] [address] [place] [address] * Ferritin (10/17/2024 11:30 AM EDT) Ferritin 44 15 - 150 ng/mL [facility] 10/17/2024 11:3 0 AM EDT 10/17/2024 Comment:Blood, Venou us Rush Cedeño MD LAB BLOOD ORDERABLES Final Resul t [facility] [address] [place] [address] * (ABNORMAL) Renal Function Panel (10/17/2024 11:30 AM EDT) Glucose 85 70 - 99 mg/dL [facility] BUN 36(H) 6 - 24 mg/dL [facility] Creatinine 3.04(H) 0.57 - 1.00 mg/dL [facility] eGFR CKD-EPI CR 2020 18(L) >59 mL/min/1.7 3 [facility] BUN/Creatinine Ratio 12 9 - 23 [facility] Sodium 140 134 - 144 mmol/L [facility] Potassium 4.2 3.5 - 5.2 mmol/L [facility] Chloride 108(H) 96 - 106 mmol/L [facility] Bicarbonate (CO2) 15(L) 20 - 29 mmol/L [facility] Calcium 9.1 8.7 - 10.2 mg/dL [facility] Phosphorus 3.8 3.0 - 4.3 mg/dL [facility] Albumin 4.0 3.8 - 4.9 g/dL [facility] Blood Venous blood / Unknown 10/17/2024 11:30 AM EDT 10/17/2024 Comment:Blood, Venou us Rush Cedeño MD LAB BLOOD ORDERABLES Final Resul t [facility] [address] [place] [address] from Last 3 Months Insurance [facility] Medicaid Care Teams Mainspring Reverse Winder Relationship Specialty Start Date End Date [facility] [address] [place] [address] PCP - General 05/31/21
--- OUTSIDE RECORDS SUMMARY | 2025-01-03 15:16 | XMS_ITS | Encounter Summary ---
Author Organization [facility] [place], Address [address] [place] [address] Phone Care Team Providers Care Explosive Operator Fuse Name Role Phone [facility] [place] Primary Care Provider [phone] Encounter Details Date Type Department Care Team (Late st Contact Info) Description 10/25/2024 Documentation Only [facility] [place], [address] [place] [phone] Ellyn Goff [address] [place] [address] Social History Tobacco Use Types [...] on filedocumented in this encounter Care Teams Explosive Operator Fuse Relationship Specialty Start Date End Date [facility] [address] [address] [place] [address] PCP - General 05/31/21 documented as of this encounter
== END 2025-01-03 12:52 | disposition home or self-care (01) ==
LOC: HO.HOS 11:31
PROVIDERS: Visit Provider Physician Assistant
DX: M75.101 Unspecified rotator cuff tear or rupture of right shoulder, not specified as traumatic (principal); S40.011A Contusion of right shoulder, initial encounter; M25.511 Pain in right shoulder
CPT/HCPCS: 20610; 99203

== ENCOUNTER → 2025-01-03 11:30 | Outpatient (BNVA) | payer OTHER, SELFPAY | PROVIDERS: Visit Provider Physician Assistant | DX: S40.011A Contusion of right shoulder, initial encounter (principal); M75.101 Unspecified rotator cuff tear or rupture of right shoulder, not specified as traumatic | CPT/HCPCS: 20610; J0665; J1100; J2003 ==